=== PATIENT | female | born 1995 | race Caucasian/White ===

== ENCOUNTER 2018-05-24 11:53 | Emergency (ER) | payer BC ==
--- NOTE | 2018-05-24 13:04 | ED ---
General Adult HPI - General Chief complaint: Vaginal Bleeding Stated complaint: Poss miscarriage Time Seen by Provider: 05/24/18 12:18 Source: patient, RN notes reviewed Mode of arrival: ambulatory Limitations: no limitations - History of Present Illness Initial comments: 22-year-old female approximately 4-5 weeks presents to the emergency department for a chief complaint of possible miscarriage. Patient states she started to have vaginal bleeding and cramping last night. Patient states the bleeding is increasing. She denies passing tissue. Patient is concerned she is having a miscarriage. Patient states she has had miscarriages before. She states she is trying to get . Patient states she is established with an [facility] in [place]. She states she is only here because she was visiting her parents. Patient has no other complaints at this time including shortness of breath, chest pain, abdominal pain, nausea or vomiting, headache, or visual changes. - Related Data Previous Rx's Medication Instructions Recorded Cephalexin [Keflex] 500 mg PO Q6H 10 Days cap 05/24/18 Allergies Allergy/AdvReac Type Severity Reaction Status Date / Time No Known Allergies Allergy Verified 05/24/18 13:03 Review of Systems ROS Statement: Those systems with pertinent positive or pertinent negative responses have been documented in the HPI. ROS Other: All systems not noted in ROS Statement are negative. Past Medical History Past Medical History: No Reported History History of Any Multi-Drug Resistant Organisms: None Reported Past Surgical History: No Surgical Hx Reported Past Psychological History: Anxiety, Depression, PTSD Smoking Status: Current every day smoker Past Alcohol Use History: Occasional Past Drug Use History: Marijuana General Exam Limitations: no limitations General appearance: alert, in no apparent distress Head exam: Present: atraumatic, normocephalic, normal inspection Eye exam: Present: normal appearance, PERRL, EOMI. Absent: scleral icterus, conjunctival injection, periorbital swelling ENT exam: Present: normal exam, mucous membranes moist Neck exam: Present: normal inspection, full ROM. Absent: tenderness, meningismus, lymphadenopathy Respiratory exam: Present: normal lung sounds bilaterally. Absent: respiratory distress, wheezes, rales, rhonchi, stridor Cardiovascular Exam: Present: regular rate, normal rhythm, normal heart sounds. Absent: systolic murmur, diastolic murmur, rubs, gallop, clicks GI/Abdominal exam: Present: soft, normal bowel sounds. Absent: distended, tenderness, guarding, rebound, rigid External exam: Present: normal external exam. Absent: erythema, swelling, lesions, lacerations, ecchymosis Speculum exam: Present: normal speculum exam, vaginal bleeding. Absent: erythema, vaginal discharge, cervical discharge, foreign body By manual exam: Present: normal by manual exam. Absent: cervical motion tenderness, adnexal tenderness, adnexal mass, uterine enlargement, uterine tenderness Neurological exam: Present: alert, oriented X3, CN II-XII intact Psychiatric exam: Present: normal affect, normal mood Skin exam: Present: warm, dry, intact, normal color. Absent: rash Course Vital Signs 05/24/18 05/24/18 12:07 16:05 Temperature 98.9 F Pulse Rate 102 H 53 L Respiratory 18 20 Rate Blood Pressure 115/78 100/54 O2 Sat by Pulse 99 100 Oximetry Medical Decision Making - Medical Decision Making 22-year-old female presents with a 4-5 weeks presents for a possible miscarriage. Patient was found to have a negative qualitative and quantitative hCG. Patient may have had a miscarriage as she is having vaginal bleeding. Ultrasound shows no acute pelvic abnormality. CBC and CMP are unremarkable. Trichomonas negative. Gonorrhea and chlamydia pending. Urine does show greater than 182 white cells. She is afebrile. Patient given Rocephin. Patient will take Keflex for urinary tract infection. She will follow up with primary care and [facility] in 1-2 days and return if she has any worsening symptoms. Patient does have an established [facility] out of town. Blood is likely from vaginal bleeding. All questions answered. - Lab Data Result diagrams: 05/24/18 13:25 Lab Results 05/24/18 05/24/18 05/24/18 Range/Units 13:15 13:25 13:25 WBC 5.8 (4.0-11.0) k/uL RBC 4.46 (3.80-5.40) m/uL Hgb 13.5 (11.4-16.0) gm/dL Hct 42.1 (34.0-46.0) % MCV 94.5 (80.0-100.0) fL MCH 30.3 (25.0-35.0) pg MCHC 32.0 (31.0-37.0) g/dL RDW 14.3 (11.5-15.5) % Plt Count 287 (150-450) k/uL Neutrophils % 61 % Lymphocytes % 31 % Monocytes % 5 % Eosinophils % 1 % Basophils % 0 % Neutrophils # 3.5 (1.3-7.7) k/uL Lymphocytes # 1.8 (1.0-4.8) k/uL Monocytes # 0.3 (0-1.0) k/uL Eosinophils # 0.1 (0-0.7) k/uL Basophils # 0.0 (0-0.2) k/uL HCG, Quant mIU/mL Urine Color Urine Appearance (Clear) Urine pH (5.0-8.0) Ur Specific [place] (1.001-1.035) Urine Protein (Negative) Urine Glucose (UA) (Negative) Urine Ketones (Negative) Urine Blood (Negative) Urine Nitrite (Negative) Urine Bilirubin (Negative) Urine Urobilinogen (<2.0) mg/dL Ur Leukocyte Esterase (Negative) Urine RBC (0-5) /hpf Urine WBC (0-5) /hpf Ur Squamous Epith Cells (0-4) /hpf Urine Mucus (None) /hpf Urine HCG, Qual (Not Detectd) Trichomonas Ag (Rapid) Negative (Negative) Blood Type A Positive Blood Type Recheck [facility] ONLY 05/24/18 05/24/18 05/24/18 Range/Units 13:25 13:25 13:25 WBC (4.0-11.0) k/uL RBC (3.80-5.40) m/uL Hgb (11.4-16.0) gm/dL Hct (34.0-46.0) % MCV (80.0-100.0) fL MCH (25.0-35.0) pg MCHC (31.0-37.0) g/dL RDW (11.5-15.5) % Plt Count (150-450) k/uL Neutrophils % % Lymphocytes % % Monocytes % % Eosinophils % % Basophils % % Neutrophils # (1.3-7.7) k/uL Lymphocytes # (1.0-4.8) k/uL Monocytes # (0-1.0) k/uL Eosinophils # (0-0.7) k/uL Basophils # (0-0.2) k/uL HCG, Quant 3.9 mIU/mL Urine Color Yellow Urine Appearance Turbid H (Clear) Urine pH 6.5 (5.0-8.0) Ur Specific [place] 1.012 (1.001-1.035) Urine Protein Trace H (Negative) Urine Glucose (UA) Negative (Negative) Urine Ketones Negative (Negative) Urine Blood Moderate H (Negative) Urine Nitrite Negative (Negative) Urine Bilirubin Negative (Negative) Urine Urobilinogen <2.0 (<2.0) mg/dL Ur Leukocyte Esterase Large H (Negative) Urine RBC 8 H (0-5) /hpf Urine WBC >182 H (0-5) /hpf Ur Squamous Epith Cells 1 (0-4) /hpf Urine Mucus Rare H (None) /hpf Urine HCG, Qual Not Detected (Not Detectd) Trichomonas Ag (Rapid) (Negative) Blood Type Blood Type Recheck Disposition Clinical Impression: Urinary tract infection, Miscarriage Disposition: HOME SELF-CARE Condition: Good Instructions (If sedation given, give patient instructions): Urinary Tract Infection in Women (ED) Additional Instructions: Please take Keflex as directed. Please follow-up with primary care and [facility] in 1-2 days. Return here to the emergency department if you have any worsening symptoms. Prescriptions: Cephalexin [Keflex] 500 mg PO Q6H 10 Days cap Is patient prescribed a controlled substance at d/c from ED?: No Referrals: Elizabeth Sandhu MD [REFERRING] - 1-2 days Time of Disposition: 16:42
[2018-05-24] MEDS ORDERED: SODIUM CHLORIDE 0.9% 1,000 ML IV ONE (13:11)
[2018-05-24 13:53] LABS: Basophils % (A) 0 %; Eosinophils # (A) 0.1 k/uL (0-0.7); Eosinophils % (A) 1 %; HCT 42.1 % (34.0-46.0); HGB 13.5 gm/dL (11.4-16.0); Lymphocytes # (A) 1.8 k/uL (1.0-4.8); Lymphocytes % (A) 31 %; MCH 30.3 pg (25.0-35.0); MCV 94.5 fL (80.0-100.0); Mean Platelet Volume 6.7; Monocytes # (A) 0.3 k/uL (0-1.0); Monocytes % (A) 5 %; Neutrophils # (A) 3.5 k/uL (1.3-7.7); Neutrophils % (A) 61 %; Platelet Count 287 k/uL (150-450); RBC 4.46 m/uL (3.80-5.40); RDW 14.3 % (11.5-15.5); WBC 5.8 k/uL (4.0-11.0)
[2018-05-24 14:01] LABS: Appearance,Urine Turbid (Clear); Bilirubin,Urine Negative (Negative); Blood,Urine Moderate (Negative); Color,Urine Yellow; Glucose,Urine (UA) Negative (Negative); Ketones,Urine Negative (Negative); Leukocyte Esterase,Urine Large (Negative); Mucus,Urine Rare /hpf; Nitrite,Urine Negative (Negative); PH, Urine 6.5 (5.0-8.0); Protein,Urine Trace (Negative); RBC,Urine 8 /hpf (0-5); Specific Gravity,Urine 1.012 (1.001-1.035); Squamous Epithelial Cell,Urine 1 /hpf (0-4); Urobilinogen,Urine <2.0 mg/dL (<2.0); WBC,Urine >182 /hpf (0-5)
[2018-05-24] MEDS ORDERED: SODIUM CHLORIDE 0.9% 1,000 ML IV STA (15:40)
--- NOTE | 2018-05-24 16:19 | US ---
EXAMINATION TYPE: US transvaginal DATE OF EXAM: 05/24/2018 COMPARISON: NONE CLINICAL HISTORY: Pain. TECHNIQUE: . Transvaginal sonographic images of the pelvis were acquired. Date of LMP: Unsure EXAM MEASUREMENTS: Uterus: 6.6 x 2.8 x 4.1 cm Endometrial Stripe: 0.2 cm Right Ovary: 2.4 x 1.7 x 1.9 cm Left Ovary: 2.3 x 0.9 x 1.6 cm 1. Uterus: Anteverted wnl 2. Endometrium: wnl 3. Right Ovary: wnl 4. Left Ovary: wnl Spectral, color and waveform doppler imaging shows good arterial and venous flow within the ovaries ; there is no evidence for ovarian torsion. 5. Bilateral Adnexa: wnl 6. Posterior cul-de-sac: wnl IMPRESSION: 1. No acute pelvic ultrasound abnormality
[2018-05-24 16:47] LABS: ALT 24 U/L (9-52); AST 16 U/L (14-36); Albumin 4.5 g/dL (3.5-5.0); Alkaline Phosphatase 76 U/L (38-126); Anion Gap 11 mmol/L; Blood Urea Nitrogen 9 mg/dL (7-17); Calcium 9.7 mg/dL (8.4-10.2); Carbon Dioxide 23 mmol/L (22-30); Chloride 107 mmol/L (98-107); Glucose 87 mg/dL (74-99); Potassium 4.3 mmol/L (3.5-5.1); Sodium 141 mmol/L (137-145); Total Bilirubin 0.7 mg/dL (0.2-1.3); Total Protein 7.8 g/dL (6.3-8.2)
[2018-05-24 17:23] VITALS: BP 112/73; PULSE 57; RESP 16; TEMP 98.3
[2018-05-26 14:46] LABS: C. trachomatis,PCR Negative (Neg,Equiv); Chlamydia trachomatis Source Urine
[2018-05-26 16:01] LABS: N. gonorrhoeae,PCR Negative (Neg,Equiv); Neisseria Source Urine
== END 2018-05-24 17:28 | disposition home or self-care (01) ==
LOC: EC 11:53
DX: O03.88 Urinary tract infection following complete or unspecified spontaneous abortion (principal); O99.331 Smoking (tobacco) complicating pregnancy, first trimester; F17.200 Nicotine dependence, unspecified, uncomplicated; Z3A.01 Less than 8 weeks gestation of pregnancy
CPT/HCPCS: 36415; 86900; 86901; 80053; 85025; 81001; 81025; 84702; 87040; 87808; 87491; 87591; 93975; 76830; 99284; 96365; 96361 ×2; J0696

== ENCOUNTER 2018-09-28 09:51 | Emergency (ER) | payer BC ==
[2018-09-28 10:11] VITALS: RESP 18
[2018-09-28] MEDS ORDERED: SODIUM CHLORIDE 0.9% 1,000 ML IV STA (10:28)
[2018-09-28 11:04] LABS: Anisocytosis Slight; Basophils % (A) 1 %; Eosinophils # (A) 0.1 k/uL (0-0.7); Eosinophils % (A) 1 %; HGB 12.5 gm/dL (11.4-16.0); Hypochromasia Slight; Lymphocytes # (A) 1.2 k/uL (1.0-4.8); Lymphocytes % (A) 20 %; MCH 26.5 pg (25.0-35.0); MCHC 31.3 g/dL (31.0-37.0); MCV 84.6 fL (80.0-100.0); Mean Platelet Volume 6.8; Monocytes # (A) 0.2 k/uL (0-1.0); Monocytes % (A) 3 %; Neutrophils # (A) 4.7 k/uL (1.3-7.7); Neutrophils % (A) 75 %; Platelet Count 329 k/uL (150-450); RBC 4.73 m/uL (3.80-5.40); RDW 16.9 % (11.5-15.5); WBC 6.2 k/uL (3.8-10.6)
[2018-09-28] MEDS ORDERED: FAMOTIDINE 20 MG/2 ML VIAL IV STA (11:05)
[2018-09-28] MEDS ORDERED: KETOROLAC 30 MG/ML 1 ML VIAL IVP STA (11:05)
--- NOTE | 2018-09-28 11:13 | ED ---
General Adult HPI - General Chief complaint: Abdominal Pain Stated complaint: ETOH withdrawals, post surgical pain Time Seen by Provider: 09/28/18 10:14 Source: patient, family, RN notes reviewed Mode of arrival: wheelchair Limitations: no limitations - History of Present Illness Initial comments: 23-year-old female presents to the emergency department for left upper quadrant abdominal pain. Patient states that she has a history of gastric bypass surgery in 2016 as well as surgery for perforated ulcer about 4 months ago at [facility]. Patient is a chronic alcoholic and drinks 20 beers per day. Last drink 8 AM yesterday morning. Patient still states she is withdrawing from Xanax with her last dose being 4 days ago. Today patient presents for her upper abdominal pain. States it has been ongoing for 2 hours. States it is consistent with previous pain from perforated ulcer. Denies nausea vomiting diarrhea. Patient has no other complaints at this time including shortness of breath, chest pain, nausea or vomiting, headache, or visual changes. - Related Data Home Medications Medication Instructions Recorded Confirmed ALPRAZolam [Xanax] 2 mg PO BID 09/28/18 09/28/18 Previous Rx's Medication Instructions Recorded Pantoprazole [Protonix] 40 mg PO DAILY #20 tablet. 09/28/18 Allergies Allergy/AdvReac Type Severity Reaction Status Date / Time No Known Allergies Allergy Verified 09/28/18 10:20 Review of Systems ROS Statement: Those systems with pertinent positive or pertinent negative responses have been documented in the HPI. ROS Other: All systems not noted in ROS Statement are negative. Past Medical History Past Medical History: No Reported History Additional Past Medical History / Comment(s): gastric bypass 2015, perforated ulcer in may, sepsis History of Any Multi-Drug Resistant Organisms: ESBL Past Surgical History: No Surgical Hx Reported Additional Past Surgical History / Comment(s): feeding tube (removed in july 2018) Past Psychological History: Anxiety, Depression, PTSD Smoking Status: Current every day smoker Past Alcohol Use History: Abuse, Daily, Heavy Past Drug Use History: Marijuana, Prescription Drug Abuse General Exam Limitations: no limitations General appearance: alert, in no apparent distress Head exam: Present: atraumatic, normocephalic, normal inspection Eye exam: Present: normal appearance, PERRL, EOMI. Absent: scleral icterus, conjunctival injection, periorbital swelling ENT exam: Present: normal exam, mucous membranes moist Neck exam: Present: normal inspection, full ROM. Absent: tenderness, menin gismus, lymphadenopathy Respiratory exam: Present: normal lung sounds bilaterally. Absent: respiratory distress, wheezes, rales, rhonchi, stridor Cardiovascular Exam: Present: regular rate, normal rhythm, normal heart sounds. Absent: systolic murmur, diastolic murmur, rubs, gallop, clicks GI/Abdominal exam: Present: soft, tenderness (tenderness to the epigastric and LUQ areas), normal bowel sounds. Absent: distended, guarding, rebound, rigid Neurological exam: Present: alert, oriented X3, CN II-XII intact Psychiatric exam: Present: normal affect, normal mood Course Vital Signs 09/28/18 09/28/18 10:04 13:27 Temperature 97.9 F Pulse Rate 107 H 95 Respiratory 18 18 Rate Blood Pressure 127/83 120/76 O2 Sat by Pulse 97 99 Oximetry Medical Decision Making - Medical Decision Making 23-year-old female presents for left upper quadrant pain. Started this morning. Patient is a chronic alcoholic. Has a history of ulcers and has not been taking her Protonix. Exam patient does have some left upper quadrant tenderness. Vitals are stable. Patient was given Ativan as she is withdrawing from alcohol as well. No history of seizures. CBC and CMP are unremarkable. CT shows postsurgical change, no definite acute process. No free air. Patient may have developed ulcer however no concern for perforation at this time. She given Pepcid and pain medication, feeling much better. Patient has had addiction with Xanax in the past she would not be given any Ativan for home. Patient will need to follow up with primary care for that. She will follow up with GI as well. Mother at bedside to take patient home. - Lab Data Result diagrams: 09/28/18 10:33 09/28/18 10:33 Lab Results 09/28/18 09/28/18 09/28/18 Range/Units 10:33 10:33 10:43 WBC 6.2 (3.8-10.6) k/uL RBC 4.73 (3.80-5.40) m/uL Hgb 12.5 (11.4-16.0) gm/dL Hct 40.0 (34.0-46.0) % MCV 84.6 (80.0-100.0) fL MCH 26.5 (25.0-35.0) pg MCHC 31.3 (31.0-37.0) g/dL RDW 16.9 H (11.5-15.5) % Plt Count 329 (150-450) k/uL Neutrophils % 75 % Lymphocytes % 20 % Monocytes % 3 % Eosinophils % 1 % Basophils % 1 % Neutrophils # 4.7 (1.3-7.7) k/uL Lymphocytes # 1.2 (1.0-4.8) k/uL Monocytes # 0.2 (0-1.0) k/uL Eosinophils # 0.1 (0-0.7) k/uL Basophils # 0.0 (0-0.2) k/uL Hypochromasia Slight Anisocytosis Slight Sodium 139 (137-145) mmol/L Potassium 4.1 (3.5-5.1) mmol/L Chloride 101 (98-107) mmol/L Carbon Dioxide 20 L (22-30) mmol/L Anion Gap 18 mmol/L BUN 12 (7-17) mg/dL Creatinine 0.68 (0.52-1.04) mg/dL Est GFR (CKD-EPI)AfAm >90 (>60 ml/min/1.73 sqM) Est GFR (CKD-EPI)NonAf >90 (>60 ml/min/1.73 sqM) Glucose 85 (74-99) mg/dL Calcium 9.4 (8.4-10.2) mg/dL Magnesium 1.6 (1.6-2.3) mg/dL Total Bilirubin 0.3 (0.2-1.3) mg/dL AST 34 (14-36) U/L ALT 24 (9-52) U/L Alkaline Phosphatase 96 (38-126) U/L Total Protein 8.4 H (6.3-8.2) g/dL Albumin 4.9 (3.5-5.0) g/dL Amylase 62 (30-110) U/L Lipase 222 (23-300) U/L Urine Color Urine Appearance (Clear) Urine pH (5.0-8.0) Ur Specific [place] (1.001-1.035) Urine Protein (Negative) Urine Glucose (UA) (Negative) Urine Ketones (Negative) Urine Blood (Negative) Urine Nitrite (Negative) Urine Bilirubin (Negative) Urine Urobilinogen (<2.0) mg/dL Ur Leukocyte Esterase (Negative) Urine RBC (0-5) /hpf Urine WBC (0-5) /hpf Ur Squamous Epith Cells (0-4) /hpf Hyaline Casts (0-2) /lpf Urine Mucus (None) /hpf Urine HCG, Qual Not Detected (Not Detectd) 09/28/18 Range/Units 10:43 WBC (3.8-10.6) k/uL RBC (3.80-5.40) m/uL Hgb (11.4-16.0) gm/dL Hct (34.0-46.0) % MCV (80.0-100.0) fL MCH (25.0-35.0) pg MCHC (31.0-37.0) g/dL RDW (11.5-15.5) % Plt Count (150-450) k/uL Neutrophils % % Lymphocytes % % Monocytes % % Eosinophils % % Basophils % % Neutrophils # (1.3-7.7) k/uL Lymphocytes # (1.0-4.8) k/uL Monocytes # (0-1.0) k/uL Eosinophils # (0-0.7) k/uL Basophils # (0-0.2) k/uL Hypochromasia Anisocytosis Sodium (137-145) mmol/L Potassium (3.5-5.1) mmol/L Chloride (98-107) mmol/L Carbon Dioxide (22-30) mmol/L Anion Gap mmol/L BUN (7-17) mg/dL Creatinine (0.52-1.04) mg/dL Est GFR (CKD-EPI)AfAm (>60 ml/min/1.73 sqM) Est GFR (CKD-EPI)NonAf (>60 ml/min/1.73 sqM) Glucose (74-99) mg/dL Calcium (8.4-10.2) mg/dL Magnesium (1.6-2.3) mg/dL Total Bilirubin (0.2-1.3) mg/dL AST (14-36) U/L ALT (9-52) U/L Alkaline Phosphatase (38-126) U/L Total Protein (6.3-8.2) g/dL Albumin (3.5-5.0) g/dL Amylase (30-110) U/L Lipase (23-300) U/L Urine Color Yellow Urine Appearance Clear (Clear) Urine pH 5.5 (5.0-8.0) Ur Specific [place] 1.024 (1.001-1.035) Urine Protein 2+ H (Negative) Urine Glucose (UA) Negative (Negative) Urine Ketones 1+ H (Negative) Urine Blood Negative (Negative) Urine Nitrite Negative (Negative) Urine Bilirubin Negative (Negative) Urine Urobilinogen <2.0 (<2.0) mg/dL Ur Leukocyte Esterase Negative (Negative) Urine RBC 1 (0-5) /hpf Urine WBC 4 (0-5) /hpf Ur Squamous Epith Cells 1 (0-4) /hpf Hyaline Casts 4 H (0-2) /lpf Urine Mucus Few H (None) /hpf Urine HCG, Qual (Not Detectd) Disposition Clinical Impression: Abdominal pain Disposition: HOME SELF-CARE Condition: Good Instructions (If sedation given, give patient instructions): Abdominal Pain (ED) Additional Instructions: Please take Protonix as directed. Follow up with GI in 1-2 days. Return to the nearest emergency department if you have any worsening symptoms. Prescriptions: Pantoprazole [Protonix] 40 mg PO DAILY #20 tablet.dr Is patient prescribed a controlled substance at d/c from ED?: No Referrals: Nonstaff,Physician [Primary Care Provider] - 1-2 days Ellis Donovan MD [STAFF PHYSICIAN] - 1-2 days Time of Disposition: 14:41
[2018-09-28 11:14] LABS: Appearance,Urine Clear (Clear); Bilirubin,Urine Negative (Negative); Blood,Urine Negative (Negative); Color,Urine Yellow; Glucose,Urine (UA) Negative (Negative); Hyaline Casts,Urine 4 /lpf (0-2); Ketones,Urine 1+ (Negative); Leukocyte Esterase,Urine Negative (Negative); Mucus,Urine Few /hpf; Nitrite,Urine Negative (Negative); PH, Urine 5.5 (5.0-8.0); Protein,Urine 2+ (Negative); RBC,Urine 1 /hpf (0-5); Specific Gravity,Urine 1.024 (1.001-1.035); Squamous Epithelial Cell,Urine 1 /hpf (0-4); Urobilinogen,Urine <2.0 mg/dL (<2.0); WBC,Urine 4 /hpf (0-5)
[2018-09-28] MEDS ORDERED: LORazepam 2 MG/ML INJ IV STA ×2 (11:16→13:06)
[2018-09-28 11:22] LABS: ALT 24 U/L (9-52); AST 34 U/L (14-36); African American GFR (CKD) >90 (>60 ml/min/1.73 sqM); Albumin 4.9 g/dL (3.5-5.0); Alkaline Phosphatase 96 U/L (38-126); Amylase 62 U/L (30-110); Anion Gap 18 mmol/L; Blood Urea Nitrogen 12 mg/dL (7-17); Calcium 9.4 mg/dL (8.4-10.2); Carbon Dioxide 20 mmol/L (22-30); Chloride 101 mmol/L (98-107); Glucose 85 mg/dL (74-99); Lipase 222 U/L (23-300); Magnesium 1.6 mg/dL (1.6-2.3); Potassium 4.1 mmol/L (3.5-5.1); Sodium 139 mmol/L (137-145); Total Bilirubin 0.3 mg/dL (0.2-1.3); Total Protein 8.4 g/dL (6.3-8.2)
--- NOTE | 2018-09-28 12:56 | CT ---
EXAMINATION TYPE: CT abdomen pelvis w con DATE OF EXAM: 09/28/2018 COMPARISON: None HISTORY: Abdominal pain, one hour; History of prforated ulcer repair CT DLP: 770.3 mGycm Automated exposure control for dose reduction was used. CONTRAST: CT scan of the abdomen pelvis is performed with IV Contrast, patient injected with 100 ml mL of Isovu e 300. FINDINGS- LUNG BASES- No significant abnormality is appreciated. LIVER/GB- No gross abnormality is appreciated. PANCREAS- No gross abnormality is seen. SPLEEN- No gross abnormality is seen. ADRENALS- No gross abnormality is seen. KIDNEYS/BLADDER- no hydronephrosis, nephrolithiasis or renal mass BOWEL-postsurgical change involving the stomach. Bowel gas pattern nonspecific. Appendix not seen wit h certainty. Additional surgery involving the small bowel suspected within the abdomen.. LYMPH NODES- No greater than 1cm abdominal or pelvic lymph nodes areappreciated. OSSEOUS STRUCTURES- No significant abnormality is seen. OTHER- no free fluid or free air. IMPRESSION- 1. Postsurgical change with no definite acute process. Correlate clinically.
[2018-09-28] MEDS ORDERED: MORPHINE SULFATE 4 MG/ML SYRINGE IVP STA ×2 (13:06→14:44)
[2018-09-28] MEDS ORDERED: MAG HYDROX/AL HYDROX/SIMETH 30 ML, HYOSCYAMINE ELIXIR 10 ML, CIMETIDINE HCL 300 MG, LID... PO STA ×4 (13:06)
[2018-09-28 14:53] VITALS: BP 124/83; PULSE 75; TEMP 97
== END 2018-09-28 15:05 | disposition home or self-care (01) ==
LOC: EC 09:51
DX: R10.12 Left upper quadrant pain (principal); G89.18 Other acute postprocedural pain; F10.239 Alcohol dependence with withdrawal, unspecified; F17.200 Nicotine dependence, unspecified, uncomplicated; F41.9 Anxiety disorder, unspecified; F43.10 Post-traumatic stress disorder, unspecified; Z98.84 Bariatric surgery status; Z79.899 Other long term (current) drug therapy
CPT/HCPCS: 36415; 80053; 82150; 83690; 83735; 85025; 81001; 81025; 74177; 99284; 96374; 96375 ×3; 96376 ×2; 96361; J2060; J2270; J1885; Q9967

== ENCOUNTER 2019-06-13 21:49 | Emergency (ER) | payer BC ==
--- NOTE | 2019-06-13 22:17 | ED ---
General Adult HPI - General Stated complaint: mental health Time Seen by Provider: 06/13/19 21:55 - History of Present Illness Initial comments: Dictation was produced using [employer] dictation software. please excuse any grammatical, word or spelling errors. Chief Complaint: 23-year-old female brought in by EMS for History of Present Illness: 23-year-old female brought in by EMS. Patient is allegedly 19 weeks . When asked why she is here, patient reports she called the final inspector because she was drunk. Patient has a petition filled out for her. Mother fill out a petition was concerned that patient is abusing drugs, alcohol and medications. Patient states she is really anxious and wants her anxiety medications and wants to leave. She was belligerent and threatening to escape to EMS. She was given 2 of IM Versed The ROS documented in this emergency department record has been reviewed and confirmed by me. Those systems with pertinent positive or negative responses have been documented in the HPI. All other systems are other negative and/or noncontributory. PHYSICAL EXAM: General Impression: Alert and oriented x3, not in acute distress, uncooperative HEENT: Normocephalic atraumatic, extra-ocular movements intact, pupils equal and reactive to light bilaterally, mucous membranes moist. Cardiovascular: Heart regular rate and rhythm, S1&S2 audible, no murmurs, rubs or gallops Chest: Lungs clear to auscultation bilaterally, no rhonchi, no wheeze, no rales Abdomen: Bowel sounds present, abdomen soft, non-tender, non-distended, no organomegaly Musculoskeletal: Pulses present and equal in all extremities, no peripheral edema Motor: no focal deficits noted Neurological: CN II-XII grossly intact, no focal motor or sensory deficits noted Skin: Intact with no visualized rashes Psych: Agitated ED course: 23-year-old female presents with concerns of drug abuse. She is allegedly 19 weeks . Patient's breath alcohol test is 0.187. heart tones 144. Patient became extremely combative at bedside. She required restraints. Patient was given 5 mg of IM Versed. Laboratory evaluation obtained. CBC unremarkable. Metabolic panel shows mild anion gap acidosis. Anion gap of 13, bicarb of 17. Urine hCG shows positive qualitative result. Patient has alcohol level of 207. Anion gap acidosis likely secondary to alcoholic ketoacidosis. Patient ordered for intravenous fluids. Pending clinical sobriety for EPS evaluation. heart rate is 144. Patient warned of the consequences of alcohol ingestion and drug ingestion during . She still continues to yell at me. Patient reports that she takes Ativan even throughout her which is prescribed by her psychiatrist. She reports that her LAN/WAN ENGINEER or a note to her psychiatrist to continue taking Xanax for her anxiety. Patient is very argumentative and wants nothing more than just a Xanax pill. Discussed with patient that Xanax is not safe in . She states that she knows and she wants it anyway since this one of her daily medications. She counseled of the harms of drinking alcohol and consuming benzos regularly while . She states she doesn't care. Patient was observed in emergency department until clinical sobriety. Patient was evaluated by EPS and recommended discharge. Safety plan was agreed upon among patient with EPS. Patient reevaluated at bedside and found to be stable medical condition. Patient will be discharged. EKG interpretation: Ventricular rate 74, normal sinus rhythm,. Interval 116, QRS 84, QTC 479. No HI prolongation, no QTC prolongation, no ST or T-wave changes noted. . Overall, this EKG is unremarkable - Related Data Home Medications Medication Instructions Recorded Confirmed ALPRAZolam [Xanax] 2 mg PO BID 09/28/18 09/28/18 Previous Rx's Medication Instructions Recorded Pantoprazole [Protonix] 40 mg PO DAILY #20 tablet. 09/28/18 Allergies Allergy/AdvReac Type Severity Reaction Status Date / Time No Known Allergies Allergy Verified 06/13/19 22:28 Review of Systems ROS Statement: Those systems with pertinent positive or pertinent negative responses have been documented in the HPI. ROS Other: All systems not noted in ROS Statement are negative. Past Medical History Past Medical History: No Reported History Additional Past Medical History / Comment(s): gastric bypass 2016, perforated ulcer in may, sepsis History of Any Multi-Drug Resistant Organisms: ESBL Past Surgical History: No Surgical Hx Reported Additional Past Surgical History / Comment(s): feeding tube (removed in july 2018) Past Psychological History: Anxiety, Depression, PTSD Smoking Status: Current every day smoker Past Alcohol Use History: Abuse, Daily, Heavy Past Drug Use History: Marijuana, Prescription Drug Abuse Course Vital Signs 06/13/19 22:26 Temperature 98.3 F Pulse Rate 90 Respiratory 18 Rate Blood Pressure 107/69 O2 Sat by Pulse 100 Oximetry Procedures - Restraint - Face to Face Restraint Occurrence 1 Patient's Immediate Situation: Endangers self safety, Endangers others' safety, Endangers staff safety, Violent behavior Patient's Reaction to the Intervention: Uncooperative, Angry, Belligerent Patient's Medical & Behavioral Condition: Awake, Agitated Need to Continue or Terminate Restraint or Seclusion: Continue Face to Face Eval of Restraint Date: 06/13/19 Face to Face Eval of Restraint Time: 22:47 Medical Decision Making - Lab Data Result diagrams: 06/13/19 22:35 06/13/19 22:35 Lab Results 06/13/19 06/13/19 06/13/19 Range/Units 22:05 22:05 22:35 WBC 8.5 (3.8-10.6) k/uL RBC 4.03 (3.80-5.40) m/uL Hgb 12.0 (11.4-16.0) gm/dL Hct 36.9 (34.0-46.0) % MCV 91.6 (80.0-100.0) fL MCH 29.7 (25.0-35.0) pg MCHC 32.5 (31.0-37.0) g/dL RDW 15.2 (11.5-15.5) % Plt Count 250 (150-450) k/uL Neutrophils % 64 % Lymphocytes % 31 % Monocytes % 3 % Eosinophils % 1 % Basophils % 0 % Neutrophils # 5.4 (1.3-7.7) k/uL Lymphocytes # 2.7 (1.0-4.8) k/uL Monocytes # 0.3 (0-1.0) k/uL Eosinophils # 0.1 (0-0.7) k/uL Basophils # 0.0 (0-0.2) k/uL Sodium (137-145) mmol/L Potassium (3.5-5.1) mmol/L Chloride (98-107) mmol/L Carbon Dioxide (22-30) mmol/L Anion Gap mmol/L BUN (7-17) mg/dL Creatinine (0.52-1.04) mg/dL Est GFR (CKD-EPI)AfAm (>60 ml/min/1.73 sqM) Est GFR (CKD-EPI)NonAf (>60 ml/min/1.73 sqM) Glucose (74-99) mg/dL Calcium (8.4-10.2) mg/dL Urine HCG, Qual Detected (Not Detectd) Salicylates mg/dL Urine Opiates Screen Not Detected (NotDetected) Ur Oxycodone Screen Not Detected (NotDetected) Urine Methadone Screen Not Detected (NotDetected) Ur Propoxyphene Screen Not Detected (NotDetected) Acetaminophen ug/mL Ur Barbiturates Screen Not Detected (NotDetected) U Tricyclic Antidepress Not Detected (NotDetected) Ur Phencyclidine Scrn Not Detected (NotDetected) Ur Amphetamines Screen Not Detected (NotDetected) U Methamphetamines Scrn Not Detected (NotDetected) U Benzodiazepines Scrn Detected H (NotDetected) Urine Cocaine Screen Not Detected (NotDetected) U Marijuana (THC) Screen Detected H (NotDetected) Serum Alcohol mg/dL 06/13/19 Range/Units 22:35 WBC (3.8-10.6) k/uL RBC (3.80-5.40) m/uL Hgb (11.4-16.0) gm/dL Hct (34.0-46.0) % MCV (80.0-100.0) fL MCH (25.0-35.0) pg MCHC (31.0-37.0) g/dL RDW (11.5-15.5) % Plt Count (150-450) k/uL Neutrophils % % Lymphocytes % % Monocytes % % Eosinophils % % Basophils % % Neutrophils # (1.3-7.7) k/uL Lymphocytes # (1.0-4.8) k/uL Monocytes # (0-1.0) k/uL Eosinophils # (0-0.7) k/uL Basophils # (0-0.2) k/uL Sodium 142 (137-145) mmol/L Potassium 4.0 (3.5-5.1) mmol/L Chloride 112 H (98-107) mmol/L Carbon Dioxide 17 L (22-30) mmol/L Anion Gap 13 mmol/L BUN 2 L (7-17) mg/dL Creatinine 0.56 (0.52-1.04) mg/dL Est GFR (CKD-EPI)AfAm >90 (>60 ml/min/1.73 sqM) Est GFR (CKD-EPI)NonAf >90 (>60 ml/min/1.73 sqM) Glucose 85 (74-99) mg/dL Calcium 8.8 (8.4-10.2) mg/dL Urine HCG, Qual (Not Detectd) Salicylates <1.0 mg/dL Urine Opiates Screen (NotDetected) Ur Oxycodone Screen (NotDetected) Urine Methadone Screen (NotDetected) Ur Propoxyphene Screen (NotDetected) Acetaminophen <10.0 ug/mL Ur Barbiturates Screen (NotDetected) U Tricyclic Antidepress (NotDetected) Ur Phencyclidine Scrn (NotDetected) Ur Amphetamines Screen (NotDetected) U Methamphetamines Scrn (NotDetected) U Benzodiazepines Scrn (NotDetected) Urine Cocaine Screen (NotDetected) U Marijuana (THC) Screen (NotDetected) Serum Alcohol 207 H* mg/dL Disposition Clinical Impression: Alcohol abuse affecting Disposition: HOME SELF-CARE Condition: Fair Instructions (If sedation given, give patient instructions): Alcohol Intoxication (ED) Is patient prescribed a controlled substance at d/c from ED?: No Referrals: None,Stated [Primary Care Provider] - 1-2 days Time of Disposition: 06:16
[2019-06-13] MEDS ORDERED: MIDAZOLAM 1 MG/ML 5 ML VIAL IV STA (22:18)
[2019-06-13 22:29] VITALS: RESP 18
[2019-06-13 22:41] LABS: Amphetamine Screen,Urine Not Detected (NotDetected); Barbiturate Screen,Urine Not Detected (NotDetected); Benzodiazepines Screen,Urine Detected (NotDetected); Cocaine Screen,Urine Not Detected (NotDetected); Methadone Screen, Urine Not Detected (NotDetected); Opiate Screen,Urine Not Detected (NotDetected); Oxycodone Screen, Urine Not Detected (NotDetected); Phencyclidine Screen,Urine Not Detected (NotDetected); Tricyclic Antidepressant,Urine Not Detected (NotDetected); Urn Cannabinoid Scrn Detected (NotDetected)
[2019-06-13 22:44] LABS: Basophils % (A) 0 %; Eosinophils # (A) 0.1 k/uL (0-0.7); Eosinophils % (A) 1 %; HCT 36.9 % (34.0-46.0); Lymphocytes # (A) 2.7 k/uL (1.0-4.8); Lymphocytes % (A) 31 %; MCH 29.7 pg (25.0-35.0); MCHC 32.5 g/dL (31.0-37.0); MCV 91.6 fL (80.0-100.0); Mean Platelet Volume 7.6; Monocytes # (A) 0.3 k/uL (0-1.0); Monocytes % (A) 3 %; Neutrophils # (A) 5.4 k/uL (1.3-7.7); Neutrophils % (A) 64 %; Platelet Count 250 k/uL (150-450); RBC 4.03 m/uL (3.80-5.40); RDW 15.2 % (11.5-15.5); WBC 8.5 k/uL (3.8-10.6)
[2019-06-13 22:51] LABS: Acetaminophen <10.0 ug/mL; African American GFR (CKD) >90 (>60 ml/min/1.73 sqM); Anion Gap 13 mmol/L; Blood Urea Nitrogen 2 mg/dL (7-17); Calcium 8.8 mg/dL (8.4-10.2); Carbon Dioxide 17 mmol/L (22-30); Chloride 112 mmol/L (98-107); Glucose 85 mg/dL (74-99); Non-African American GFR(CKD) >90 (>60 ml/min/1.73 sqM); Salicylate <1.0 mg/dL; Sodium 142 mmol/L (137-145)
[2019-06-13 23:05] LABS: Alcohol 207 mg/dL
[2019-06-13] MEDS ORDERED: SODIUM CHLORIDE 0.9% 1,000 ML IV STA (23:06)
[2019-06-14] MEDS ORDERED: LORazepam 1 MG TAB PO STA (02:14)
[2019-06-14 06:20] VITALS: BP 108/61; PULSE 77; TEMP 98
== END 2019-06-14 06:32 | disposition home or self-care (01) ==
LOC: EC 21:49
DX: O99.312 Alcohol use complicating pregnancy, second trimester (principal); F10.10 Alcohol abuse, uncomplicated; O99.89 Other specified diseases and conditions complicating pregnancy, childbirth and the puerperium; R45.1 Restlessness and agitation; O99.282 Endocrine, nutritional and metabolic diseases complicating pregnancy, second trimester; E87.2 Acidosis; Z71.41 Alcohol abuse counseling and surveillance of alcoholic; O99.342 Other mental disorders complicating pregnancy, second trimester; F32.9 Major depressive disorder, single episode, unspecified; F41.9 Anxiety disorder, unspecified; O99.332 Smoking (tobacco) complicating pregnancy, second trimester; F17.200 Nicotine dependence, unspecified, uncomplicated; Z79.899 Other long term (current) drug therapy; Y90.7 Blood alcohol level of 200-239 mg/100 ml; Z3A.19 19 weeks gestation of pregnancy
CPT/HCPCS: 82075; 36415; 93005; 80048; 85025; 81025; 80306; 83520; 80329; 80320; 99285; 96374; 96361 ×6; J2250

== ENCOUNTER 2019-06-17 15:53 | Emergency (ER) | payer BC ==
[2019-06-17 16:01] VITALS: TEMP 97.9
--- NOTE | 2019-06-17 16:57 | ED ---
General Adult HPI - General Chief complaint: Recheck/Abnormal Lab/Rx Stated complaint: 20 wks /cramping Time Seen by Provider: 06/17/19 16:06 Source: patient, RN notes reviewed, old records reviewed Mode of arrival: ambulatory Limitations: no limitations - History of Present Illness Initial comments: This Patient is a 23-year-old female, currently 20 weeks . She is a female. She reports that she follows with CAPTAIN/CHECK AIRMAN to [facility] due to having a high risk . Patient states that she's had no vaginal bleeding. She presents today with lower abdominal cramping. She was seen in the emergency department this weekend for alcohol intoxication. Patient reports that she has not felt her baby move since that time and is worried that she caused damage to the fetus. - Related Data Home Medications Medication Instructions Recorded Confirmed ALPRAZolam [Xanax] 2 mg PO BID 09/28/18 09/28/18 Previous Rx's Medication Instructions Recorded Pantoprazole [Protonix] 40 mg PO DAILY #20 tablet. 09/28/18 Allergies Allergy/AdvReac Type Severity Reaction Status Date / Time No Known Allergies Allergy Verified 06/17/19 16:01 Review of Systems ROS Statement: Those systems with pertinent positive or pertinent negative responses have been documented in the HPI. ROS Other: All systems not noted in ROS Statement are negative. Past Medical History Past Medical History: No Reported History Additional Past Medical History / Comment(s): gastric bypass 2015, perforated ulcer in may, sepsis History of Any Multi-Drug Resistant Organisms: ESBL Past Surgical History: No Surgical Hx Reported Additional Past Surgical History / Comment(s): feeding tube (removed in july 2018) Past Psychological History: Anxiety, Depression, PTSD Smoking Status: Current every day smoker Past Alcohol Use History: Abuse, Daily, Heavy Past Drug Use History: Marijuana, Prescription Drug Abuse General Exam - General Exam Comments Initial Comments: Alert and oriented 23-year-old female. No significant distress. Limitations: no limitations General appearance: alert, in no apparent distress Head exam: Present: atraumatic, normocephalic, normal inspection Eye exam: Present: normal appearance, PERRL, EOMI. Absent: scleral icterus, conjunctival injection, periorbital swelling ENT exam: Present: normal exam, mucous membranes moist Neck exam: Present: normal inspection. Absent: tenderness, meningismus, lymphadenopathy Respiratory exam: Present: normal lung sounds bilaterally. Absent: respiratory distress, wheezes, rales, rhonchi, stridor Cardiovascular Exam: Present: regular rate, normal rhythm, normal heart sounds. Absent: systolic murmur, diastolic murmur, rubs, gallop, clicks GI/Abdominal exam: Present: soft, normal bowel sounds. Absent: distended, tenderness, guarding, rebound, rigid Extremities exam: Present: normal inspection, full ROM, normal capillary refill. Absent: tenderness, pedal edema, joint swelling, calf tenderness Back exam: Present: normal inspection, full ROM Neurological exam: Present: alert, oriented X3, CN II-XII intact Psychiatric exam: Present: normal affect, normal mood Skin exam: Present: warm, dry, intact, normal color. Absent: rash Course Vital Signs 06/17/19 06/17/19 15:58 17:28 Temperature 97.9 F 97.9 F Pulse Rate 69 79 Respiratory 18 19 Rate Blood Pressure 107/72 111/68 O2 Sat by Pulse 100 99 Oximetry Medical Decision Making - Medical Decision Making 23 year old female, no distress. 20 weeks and hx of lower cramping. She has heart tones 144 bpm. UA is normal, no bleeding. No vaginal discharged noted. Patient is advised to follow up with OBGYN. - Lab Data Lab Results 06/17/19 06/17/19 Range/Units 17:00 17:00 Urine Color Light Yellow Urine Appearance Clear (Clear) Urine pH 7.0 (5.0-8.0) Ur Specific [place] 1.004 (1.001-1.035) Urine Protein Negative (Negative) Urine Glucose (UA) Negative (Negative) Urine Ketones Negative (Negative) Urine Blood Negative (Negative) Urine Nitrite Negative (Negative) Urine Bilirubin Negative (Negative) Urine Urobilinogen <2.0 (<2.0) mg/dL Ur Leukocyte Esterase Negative (Negative) Trichomonas Ag (Rapid) Negative (Negative) - Radiology Data Radiology results: report reviewed Disposition Clinical Impression: Abdominal cramping affecting Disposition: HOME SELF-CARE Condition: Good Instructions (If sedation given, give patient instructions): Abdominal Pain in (ED) Additional Instructions: Follow-up with your CAPTAIN/CHECK AIRMAN. Return to the ED if any alarming signs or symptoms occur. Take Tylenol for pain. Is patient prescribed a controlled substance at d/c from ED?: No Referrals: Nonstaff,Physician [Primary Care Provider] - 1-2 days Time of Disposition: 17:25
[2019-06-17 17:23] LABS: Appearance,Urine Clear (Clear); Bilirubin,Urine Negative (Negative); Blood,Urine Negative (Negative); Color,Urine Light Yellow; Glucose,Urine (UA) Negative (Negative); Ketones,Urine Negative (Negative); Leukocyte Esterase,Urine Negative (Negative); Nitrite,Urine Negative (Negative); Protein,Urine Negative (Negative); Specific Gravity,Urine 1.004 (1.001-1.035); Urobilinogen,Urine <2.0 mg/dL (<2.0)
[2019-06-17 17:30] VITALS: BP 111/68; PULSE 79; RESP 19
[2019-06-18 14:33] LABS: C. trachomatis,PCR Negative (Neg,Equiv); Chlamydia trachomatis Source Vagina; N. gonorrhoeae,PCR Negative (Neg,Equiv); Neisseria Source Vagina
== END 2019-06-17 17:29 | disposition home or self-care (01) ==
LOC: EC 15:53
DX: O26.892 Other specified pregnancy related conditions, second trimester (principal); O99.342 Other mental disorders complicating pregnancy, second trimester; F41.9 Anxiety disorder, unspecified; F32.9 Major depressive disorder, single episode, unspecified; O99.332 Smoking (tobacco) complicating pregnancy, second trimester; F17.200 Nicotine dependence, unspecified, uncomplicated; Z79.899 Other long term (current) drug therapy; Z98.84 Bariatric surgery status; Z3A.20 20 weeks gestation of pregnancy
CPT/HCPCS: 81003; 87070; 87491; 87591; 87808; 99284

== ENCOUNTER 2019-08-13 11:36 | Outpatient (CLI) | payer BC ==
[2019-08-13] MEDS ORDERED: LACTATED RINGERS 1,000 ML IV SCH ×2 (13:00)
[2019-08-13 13:35] VITALS: BP 121/57; PULSE 82; RESP 18; TEMP 98.2
[2019-08-13 13:35] LABS: Basophils % (A) 0 %; Eosinophils # (A) 0.1 k/uL (0-0.7); Eosinophils % (A) 1 %; HCT 33.1 % (34.0-46.0); HGB 10.7 gm/dL (11.4-16.0); Lymphocytes # (A) 1.8 k/uL (1.0-4.8); Lymphocytes % (A) 23 %; MCH 30.5 pg (25.0-35.0); MCHC 32.3 g/dL (31.0-37.0); MCV 94.6 fL (80.0-100.0); Mean Platelet Volume 7.9; Monocytes # (A) 0.3 k/uL (0-1.0); Monocytes % (A) 3 %; Neutrophils # (A) 5.7 k/uL (1.3-7.7); Neutrophils % (A) 73 %; Platelet Count 211 k/uL (150-450); WBC 7.9 k/uL (3.8-10.6)
[2019-08-13 14:27] LABS: Appearance,Urine Clear (Clear); Bilirubin,Urine Negative (Negative); Blood,Urine Negative (Negative); Color,Urine Yellow; Glucose,Urine (UA) Negative (Negative); Ketones,Urine Negative (Negative); Leukocyte Esterase,Urine Negative (Negative); Nitrite,Urine Negative (Negative); PH, Urine 7.5 (5.0-8.0); Protein,Urine Negative (Negative); Urobilinogen,Urine <2.0 mg/dL (<2.0)
--- NOTE | 2019-08-13 14:34 | US ---
EXAMINATION TYPE: US OB >= 14 wk fetus DATE OF EXAM: 08/13/2019 COMPARISON: None CLINICAL HISTORY: 28 weeks. bleeding hxBleeding and cramps. TECHNIQUE: Transabdominal (TA) GESTATIONAL AGE / DATING Physician Established: (28 weeks/2 days) EDC: 11/03/2019 Dates by LMP: (28 weeks/2 days) EDC: 11/03/2019 Dates by First Scan: No previous this is first scan Dates by Current Scan: (26 weeks/2 days) EDC: 11/17/2019 SURVEY IUP: Single PLACENTA: Posterior PREVIA: No Previa KRISTEN: 13.2 cm Normal CERVICAL LENGTH (transabdominal: norm > 3.0cm): 4.3 cm BIOMETRY PRESENTATION: Breech LIE: Longitudinal BPD: 6.66 cm 26 weeks / 6 days HC: 17.74 cm 29 weeks / 2 days AC: 24.42 cm 28 weeks / 5 days FL: 5.48 cm 29 weeks / 0 days ESTIMATED WEIGHT IN GRAMS: 1109 grams ESTIMATED WEIGHT IN LBS/OZ: 2 lbs. 7 oz. WEIGHT PERCENTAGE BASED ON ESTABLISHED DATES: 18% HC/AC: 8.73 cm Normal FL/AC: 22% Normal HEART RATE: 147 bpm RHYTHM: Normal IMPRESSION: Single viable intrauterine . The estimated weight is within the 18th percentile. No Un usual collections.
[2019-08-13 14:42] LABS: Amphetamine Screen,Urine Not Detected (NotDetected); Barbiturate Screen,Urine Not Detected (NotDetected); Benzodiazepines Screen,Urine Detected (NotDetected); Cocaine Screen,Urine Not Detected (NotDetected); Methadone Screen, Urine Not Detected (NotDetected); Opiate Screen,Urine Not Detected (NotDetected); Oxycodone Screen, Urine Not Detected (NotDetected); Phencyclidine Screen,Urine Not Detected (NotDetected); Tricyclic Antidepressant,Urine Not Detected (NotDetected); Urn Cannabinoid Scrn Detected (NotDetected)
--- NOTE | 2019-09-14 11:48 | P.MSEPDOC ---
Presenting Problems - Arrival Data Date of Arrival on Unit: 08/13/19 Time of Arrival on Unit: 11:55 Mode of Transport: Portable - Complaint OB-Reason for Admission/Chief Complaint: Other Comment: BLEEDING LAST NIGHT AND PASSING SMALL CLOTS. CONTINUES TO BLEED WITH WIPING. LOWER ABD AND GROIN PAINS AND PRESSURE. STATES EVERY 2- TO 30 MINUTES. Medical History - Information : 5 Para: 0 Term: 0 : 0 Abortions: Spontaneous or Elective: 4 Number of Living Children: 0 - Gestational Age Gestational Age by FERNANDEZ (wks/days): 28 Weeks and 2 Days - History Complications: Hx. Substance Abuse, Other Comment: HX OF MARIJUANA USE IN . LAST USED 3 WEEKS AGO. STATES HX OF COCAINE USE- LAST USED 3 YEARS AGO. BARIATRIC SURGERY 2016. STOMACH ULCER SURGERY LAST YEAR, FEEDING TUBE FOR 7 MOS RECENTLY REMOVED Review of Systems - Review of Systems Constitutional: Recent weight loss Breast: No problems ENT: No problems Cardiovascular: No problems Respiratory: No problems Gastrointestinal: No problems Genitourinary: No problems Musculoskeletal: No problems Neurological: No problems Skin: No problems Vital Signs - Temperature Temperature: 98.2 F Temperature Source: Oral - Pulse Right Brachial Pulse Rate: 82 Pulse Assessment Method: Automatic Cuff - Respirations Respiratory Rate: 18 Oxygen Delivery Method: Room Air O2 Sat by Pulse Oximetry: 98 - Blood Pressure Right Arm Blood Pressure: 121/57 Blood Pressure Mean: 78 Blood Pressure Source: Automatic Cuff Medical Screen Scoring (Pre) - Cervical Exam Dilation: 0 cm = 0 Membranes: Intact - Uterine Contractions Frequency: N/A Duration: N/A Intensity: N/A - Maternal Vital Signs Maternal Temperature: N/A Maternal Blood Pressure: N/A Signs of Preeclampsia: N/A Maternal Respirations: N/A - Maternal Trauma Maternal Trauma: N/A - Assessment - Baby A Baseline FHR: 140 Heart Rate - NICHD Category: Category I (Normal) = 0 NST: Reactive - Total Score - Baby A Total Score - Baby A: 0 - Total Score - Baby B Total Score - Baby B: 0 - Total Score - Baby C Total Score - Baby C: 0 - Level of Risk - Baby A Level of Risk - Baby A: Low (0-5) - Level of Risk - Baby B Level of Risk - Baby B: Low (0-5) - Level of Risk - Baby C Level of Risk - Baby C: Low (0-5) Physician Notification (Pre) - Physician Notified Physician Notified Date: 08/13/19 Physician Notified Time: 12:45 Physician/Practitioner Notifed:: YES Spoke With: GHAZALA New Order Received: Yes - Notification Comment Comment: U/S. CBC., UA, UDS, IV LR Disposition - Disposition OB Disposition: Observe Discharge Date: 08/13/19 Discharge Time: 14:49 I agree with the RN Medical Screening Exam: Yes Risk & Benefit of care provided described in d/c instruction: Yes Diagnosis: SPOTTING COMPLICATING , THIRD TRIMESTER
== END 2019-08-13 14:54 | disposition home or self-care (01) ==
LOC: FBPOP 11:36
PROVIDERS: ATTEND Obstetrics & Gynecology Obstetrics
DX: O26.853 Spotting complicating pregnancy, third trimester (principal); Z3A.28 28 weeks gestation of pregnancy
CPT/HCPCS: 59025; 76805; 80306; 81003; 84112; 85025; 96360; 96361; 96367; 99213; 99214

== ENCOUNTER 2019-09-12 05:55 | Outpatient (CLI) | payer BC ==
[2019-09-12 07:07] VITALS: BP 120/67; PULSE 94; RESP 16; TEMP 99
--- NOTE | 2019-09-22 23:05 | P.MSEPDOC ---
Presenting Problems - Arrival Data Date of Arrival on Unit: 09/12/19 Time of Arrival on Unit: 05:55 Mode of Transport: Ambulatory - Complaint OB-Reason for Admission/Chief Complaint: Decreased Movement Medical History - Information : 5 Para: 0 Term: 0 : 0 Abortions: Spontaneous or Elective: 4 Number of Living Children: 0 - Gestational Age Gestational Age by FERNANDEZ (wks/days): 33 Weeks and 2 Days Review of Systems - Review of Systems Constitutional: No problems Breast: No problems ENT: No problems Cardiovascular: No problems Respiratory: No problems Gastrointestinal: No problems Genitourinary: No problems Musculoskeletal: No problems Neurological: No problems Skin: No problems Vital Signs - Temperature Temperature: 99.0 F Temperature Source: Oral - Pulse Right Pulse Rate: 94 Pulse Assessment Method: Automatic Cuff - Respirations Respiratory Rate: 16 Oxygen Delivery Method: Room Air O2 Sat by Pulse Oximetry: 100 - Blood Pressure Right Arm Blood Pressure: 120/67 Blood Pressure Mean: 84 Blood Pressure Source: Automatic Cuff Medical Screen Scoring (Pre) - Cervical Exam Dilation: 0 cm = 0 Membranes: Intact - Uterine Contractions Frequency: N/A Duration: N/A Intensity: N/A - Maternal Vital Signs Maternal Blood Pressure: N/A Signs of Preeclampsia: N/A Maternal Respirations: N/A - Maternal Trauma Maternal Trauma: N/A - Assessment - Baby A Baseline FHR: 130 Heart Rate - NICHD Category: Category I (Normal) = 0 NST: Reactive Position: N/A Station: N/A - Total Score - Baby A Total Score - Baby A: 0 - Total Score - Baby B Total Score - Baby B: 0 - Total Score - Baby C Total Score - Baby C: 0 - Level of Risk - Baby A Level of Risk - Baby A: Low (0-5) - Level of Risk - Baby B Level of Risk - Baby B: Low (0-5) - Level of Risk - Baby C Level of Risk - Baby C: Low (0-5) Physician Notification (Pre) - Physician Notified Physician Notified Date: 09/12/19 Physician Notified Time: 06:45 New Order Received: Yes - Notification Comment Comment: Discharge home Disposition - Disposition OB Disposition: Discharge to home Discharge Date: 09/12/19 Discharge Time: 07:00 I agree with the RN Medical Screening Exam: Yes Risk & Benefit of care provided described in d/c instruction: Yes Diagnosis: DECREASED MOVEMENTS, THIRD TRIMESTER, FETUS 1
== END 2019-09-12 07:00 | disposition home or self-care (01) ==
LOC: FBPOP 05:55
PROVIDERS: ATTEND Obstetrics & Gynecology
DX: O36.8131 Decreased fetal movements, third trimester, fetus 1 (principal); Z3A.33 33 weeks gestation of pregnancy
CPT/HCPCS: 59025; 99213

== ENCOUNTER 2020-12-19 04:30 | Emergency (ER) | payer BC ==
[2020-12-19 04:39] VITALS: TEMP 98.5
[2020-12-19] MEDS ORDERED: AMOXIC-POT CLAV 875-125MG 1 EACH TAB PO STA (04:48)
--- NOTE | 2020-12-19 04:56 | ED ---
General Adult HPI - General Source: patient, EMS Mode of arrival: EMS Limitations: no limitations - History of Present Illness -: week(s) Location: mouth Quality: aching Consistency: constant Improves with: none Worsens with: none Associated Symptoms: other Treatments Prior to Arrival: other <Teo King - Last Filed: 12/19/20 06:26> <SauerAnish - Last Filed: 12/19/20 07:07> - General Chief complaint: Psychiatric Symptoms Stated complaint: Mental Health Time Seen by Provider: 12/19/20 04:36 - History of Present Illness Initial comments: 's patient is a 25-year-old woman who presents with 2 complaints. She states she is having right mandibular tooth pain that is been going on for a few weeks. She had been treated with coarse antibiotics but had not seen a dentist yet. The pain has recurred. No fever or chills. No swelling. No trouble with swallowing. No pain into the neck. She is also having anxiety and restlessness. Patient denies suicidal ideation. She states that her primary care physician has been treating her anxiety but it does not seem to be improving much. (Teo King) - Related Data Home Medications Medication Instructions Recorded Confirmed Zolpidem [Ambien] 10 mg PO HS PRN 08/13/19 12/19/20 Dextroamphetamine/Amphetamine 30 mg PO BID 12/19/20 12/19/20 [Adderall] Ondansetron [Zofran ODT] 4 mg PO Q8HR 12/19/20 12/19/20 Sertraline [Zoloft] 50 mg PO DAILY 12/19/20 12/19/20 buPROPion XL [Wellbutrin XL] 150 mg PO DAILY 12/19/20 12/19/20 busPIRone HCl [Buspar] 15 mg PO BID 12/19/20 12/19/20 clonazePAM [KlonoPIN] 0.5 mg PO DAILY 12/19/20 12/19/20 Previous Rx's Medication Instructions Recorded Pantoprazole [Protonix] 40 mg PO DAILY #20 tablet. 09/28/18 Amoxicillin 500 mg PO Q8H #30 cap 12/19/20 Allergies Allergy/AdvReac Type Severity Reaction Status Date / Time No Known Allergies Allergy Verified 12/19/20 04:38 Review of Systems ROS Other: All systems not noted in ROS Statement are negative. Constitutional: Denies: fever, chills Eyes: Denies: eye pain, vision change ENT: Reports: dental pain. Denies: ear pain, throat pain, congestion Respiratory: Denies: cough, dyspnea Cardiovascular: Denies: chest pain, palpitations Skin: Denies: rash Neurological: Denies: headache Psychiatric: Reports: anxiety. Denies: depression, auditory hallucinations, h omicidal thoughts, suicidal thoughts <Teo King - Last Filed: 12/19/20 06:26> ROS Other: All systems not noted in ROS Statement are negative. <SauerAnish - Last Filed: 12/19/20 07:07> ROS Statement: Those systems with pertinent positive or pertinent negative responses have been documented in the HPI. Past Medical History Past Medical History: GERD/Reflux Additional Past Medical History / Comment(s): gastric bypass 2015, perforated ulcer in may, sepsis History of Any Multi-Drug Resistant Organisms: ESBL Date of last positivie culture/infection: 05/29/2018 MDRO Source:: ABDOMEN Past Surgical History: Bariatric Surgery, Hernia Repair, Orthopedic Surgery Additional Past Surgical History / Comment(s): feeding tube (removed in july 2018) , lt arm Past Psychological History: Anxiety, Depression, PTSD Smoking Status: Current every day smoker, Vaper Past Alcohol Use History: Abuse, Daily, Heavy Past Drug Use History: Marijuana, Prescription Drug Abuse <Teo King - Last Filed: 12/19/20 06:26> General Exam Limitations: no limitations General appearance: alert, in no apparent distress Head exam: Present: atraumatic, normocephalic Eye exam: Present: normal appearance, PERRL, EOMI. Absent: scleral icterus, conjunctival injection ENT exam: Present: other (Patient has a fracture of tooth #32. No dental abscess. No submandibular or neck swelling or tenderness) Neck exam: Present: normal inspection, full ROM. Absent: tenderness, meningismus, lymphadenopathy Respiratory exam: Present: normal lung sounds bilaterally. Absent: respiratory distress, wheezes, rales, rhonchi, stridor Cardiovascular Exam: Present: regular rate, normal rhythm, normal heart sounds. Absent: systolic murmur, diastolic murmur, rubs, gallop Neurological exam: Present: alert Psychiatric exam: Present: normal affect, anxious. Absent: depressed, agitated, manic, homicidal ideation, suicidal ideation Skin exam: Present: warm, dry, intact, normal color. Absent: rash <Teo King - Last Filed: 12/19/20 06:26> Course Vital Signs 12/19/20 04:34 Temperature 98.5 F Pulse Rate 101 H Respiratory 20 Rate Blood Pressure 118/69 O2 Sat by Pulse 100 Oximetry Medical Decision Making - Lab Data Lab Results 12/19/20 12/19/20 Range/Units 06:15 06:15 Urine Color Yellow Urine Appearance Clear (Clear) Urine pH 5.5 (5.0-8.0) Ur Specific [place] 1.030 (1.001-1.035) Urine Protein 1+ H (Negative) Urine Glucose (UA) Negative (Negative) Urine Ketones 1+ H (Negative) Urine Blood Negative (Negative) Urine Nitrite Negative (Negative) Urine Bilirubin Negative (Negative) Urine Urobilinogen 2.0 (<2.0) mg/dL Ur Leukocyte Esterase Negative (Negative) Urine RBC 2 (0-5) /hpf Urine WBC 1 (0-5) /hpf Ur Squamous Epith Cells 4 (0-4) /hpf Hyaline Casts 17 H (0-2) /lpf Urine Mucus Occasional H (None) /hpf Urine HCG, Qual Not Detected (Not Detectd) Urine Opiates Screen Not Detected (NotDetected) Ur Oxycodone Screen Not Detected (NotDetected) Urine Methadone Screen Not Detected (NotDetected) Ur Propoxyphene Screen Not Detected (NotDetected) Ur Barbiturates Screen Not Detected (NotDetected) U Tricyclic Antidepress Not Detected (NotDetected) Ur Phencyclidine Scrn Not Detected (NotDetected) Ur Amphetamines Screen Detected H (NotDetected) U Methamphetamines Scrn Not Detected (NotDetected) U Benzodiazepines Scrn Not Detected (NotDetected) Urine Cocaine Screen Not Detected (NotDetected) U Marijuana (THC) Screen Detected H (NotDetected) Disposition <Teo King - Last Filed: 12/19/20 06:26> Time of Disposition: 07:03 <Anish Sauer - Last Filed: 12/19/20 07:07> Clinical Impression: Psychosis, Toothache Disposition: TRANSFER TO PSYCH HOSP/UNIT Prescriptions: Amoxicillin 500 mg PO Q8H #30 cap Referrals: Nonstaff,Physician [Primary Care Provider] - 1-2 days
[2020-12-19 06:27] LABS: Appearance,Urine Clear (Clear); Bilirubin,Urine Negative (Negative); Blood,Urine Negative (Negative); Color,Urine Yellow; Glucose,Urine (UA) Negative (Negative); Hyaline Casts,Urine 17 /lpf (0-2); Ketones,Urine 1+ (Negative); Leukocyte Esterase,Urine Negative (Negative); Mucus,Urine Occasional /hpf; Nitrite,Urine Negative (Negative); PH, Urine 5.5 (5.0-8.0); Protein,Urine 1+ (Negative); RBC,Urine 2 /hpf (0-5); Squamous Epithelial Cell,Urine 4 /hpf (0-4); WBC,Urine 1 /hpf (0-5)
[2020-12-19 06:56] LABS: Amphetamine Screen,Urine Detected (NotDetected); Barbiturate Screen,Urine Not Detected (NotDetected); Benzodiazepines Screen,Urine Not Detected (NotDetected); Cocaine Screen,Urine Not Detected (NotDetected); Methadone Screen, Urine Not Detected (NotDetected); Opiate Screen,Urine Not Detected (NotDetected); Oxycodone Screen, Urine Not Detected (NotDetected); Phencyclidine Screen,Urine Not Detected (NotDetected); Tricyclic Antidepressant,Urine Not Detected (NotDetected); Urn Cannabinoid Scrn Detected (NotDetected)
[2020-12-19 07:26] LABS: Basophils % (A) 0 %; Eosinophils % (A) 0 %; HCT 33.3 % (34.0-46.0); HGB 11.4 gm/dL (11.4-16.0); Lymphocytes # (A) 1.6 k/uL (1.0-4.8); Lymphocytes % (A) 15 %; MCHC 34.3 g/dL (31.0-37.0); MCV 87.3 fL (80.0-100.0); Mean Platelet Volume 7.4; Monocytes # (A) 0.4 k/uL (0-1.0); Monocytes % (A) 3 %; Neutrophils # (A) 8.5 k/uL (1.3-7.7); Neutrophils % (A) 80 %; Platelet Count 414 k/uL (150-450); RBC 3.81 m/uL (3.80-5.40); RDW 14.5 % (11.5-15.5); WBC 10.6 k/uL (3.8-10.6)
[2020-12-19 07:32] LABS: ALT 16 U/L (4-34); AST 23 U/L (14-36); African American GFR (CKD) >90 (>60 ml/min/1.73 sqM); Albumin 4.6 g/dL (3.5-5.0); Alkaline Phosphatase 71 U/L (38-126); Anion Gap 12 mmol/L; Blood Urea Nitrogen 23 mg/dL (7-17); Calcium 9.4 mg/dL (8.4-10.2); Carbon Dioxide 17 mmol/L (22-30); Chloride 105 mmol/L (98-107); Glucose 105 mg/dL (74-99); Non-African American GFR(CKD) >90 (>60 ml/min/1.73 sqM); Potassium 4.3 mmol/L (3.5-5.1); Sodium 134 mmol/L (137-145); Total Bilirubin 0.5 mg/dL (0.2-1.3); Total Protein 7.5 g/dL (6.3-8.2)
[2020-12-19] MEDS ORDERED: LORazepam 1 MG TAB PO STA (08:06)
[2020-12-19] MEDS ORDERED: ZIPRASIDONE 20 MG VIAL IM STA (10:02)
[2020-12-19 11:15] VITALS: BP 102/66; PULSE 87; RESP 16
== END 2020-12-19 14:30 ==
LOC: EC 04:30
DX: K08.89 Other specified disorders of teeth and supporting structures (principal); F29 Unspecified psychosis not due to a substance or known physiological condition; K21.9 Gastro-esophageal reflux disease without esophagitis; F41.9 Anxiety disorder, unspecified; F32.9 Major depressive disorder, single episode, unspecified; F43.12 Post-traumatic stress disorder, chronic; F17.200 Nicotine dependence, unspecified, uncomplicated; F12.90 Cannabis use, unspecified, uncomplicated; Z98.84 Bariatric surgery status
CPT/HCPCS: 99284; 96372; 82075; 36415; 80053; 85025; 81001; 81025; 80306; 87635; J3486

== ENCOUNTER 2021-01-09 20:39 | Emergency (ER) | payer BC ==
[2021-01-09] MEDS ORDERED: DIPH,PERTUS(ACELL)TETVAC-LF 0.5 ML VIAL IM ONE (20:53)
[2021-01-09] MEDS ORDERED: LORazepam 2 MG/ML INJ IV STA ×2 (20:53→21:01)
[2021-01-09 20:55] VITALS: BP 116/84; PULSE 85; RESP 20
[2021-01-09 21:06] LABS: Basophils # (A) 0.1 k/uL (0-0.2); Basophils % (A) 1 %; Eosinophils # (A) 0.2 k/uL (0-0.7); Eosinophils % (A) 2 %; HCT 38.5 % (34.0-46.0); HGB 12.1 gm/dL (11.4-16.0); Lymphocytes # (A) 3.2 k/uL (1.0-4.8); Lymphocytes % (A) 39 %; MCH 28.3 pg (25.0-35.0); MCHC 31.4 g/dL (31.0-37.0); MCV 90.3 fL (80.0-100.0); Mean Platelet Volume 6.9; Monocytes # (A) 0.3 k/uL (0-1.0); Monocytes % (A) 3 %; Neutrophils # (A) 4.4 k/uL (1.3-7.7); Neutrophils % (A) 53 %; Platelet Count 400 k/uL (150-450); RBC 4.26 m/uL (3.80-5.40); RDW 14.5 % (11.5-15.5); WBC 8.3 k/uL (3.8-10.6)
[2021-01-09] MEDS ORDERED: DIAZEPAM 5 MG/ML 2 ML INJ IVP STA (21:11)
[2021-01-09 21:18] LABS: ALT 29 U/L (4-34); AST 36 U/L (14-36); African American GFR (CKD) >90 (>60 ml/min/1.73 sqM); Albumin 4.6 g/dL (3.5-5.0); Alkaline Phosphatase 70 U/L (38-126); Anion Gap 13 mmol/L; Blood Urea Nitrogen 9 mg/dL (7-17); Calcium 9.8 mg/dL (8.4-10.2); Carbon Dioxide 22 mmol/L (22-30); Chloride 105 mmol/L (98-107); Glucose 95 mg/dL (74-99); Non-African American GFR(CKD) >90 (>60 ml/min/1.73 sqM); Sodium 140 mmol/L (137-145); Total Bilirubin 0.3 mg/dL (0.2-1.3); Total Protein 7.9 g/dL (6.3-8.2)
[2021-01-09 21:22] LABS: INR 0.9 (<1.2); Partial Thromboplastin Time 20.9 sec (22.0-30.0); Prothrombin Time 9.8 sec (9.0-12.0)
[2021-01-09] MEDS ORDERED: LIDOCAINE/EPINEPHR/TETRACAINE 5 ML BOTTLE TOPICAL ONE (21:45)
--- NOTE | 2021-01-09 21:49 | CT ---
EXAMINATION TYPE: CT brain wo con DATE OF EXAM: 01/09/2021 COMPARISON: None HISTORY: Head trauma, LOC CT DLP: 1113.4 mGycm Automated exposure control for dose reduction was used. The ventricles have normal size. There is no mass effect nor midline shift. There is no sign of intra cranial hemorrhage. The calvarium is intact. There is normal aeration of the mastoid sinuses. Skull b ase is intact. IMPRESSION: Negative unenhanced head CT scan.
[2021-01-09 22:03] LABS: HCG,Qualitative Serum Not Detected
--- NOTE | 2021-01-09 22:08 | ED ---
Fall HPI - General Chief Complaint: Fall Stated Complaint: Fall, Head injury Time Seen by Provider: 01/09/21 20:50 Source: patient Mode of arrival: ambulatory - History of Present Illness Initial Comments: This 25-year-old female presents with a complaint of a fall. She cannot r emember exactly what happened. She is initially involved in quite a panic attack and has a difficult time giving history. History is obtained per her significant other. He relates that he came home on his lunch break and found her on the floor. She had a cut to her forehead with some blood on the floor as well. The exact time of loss of consciousness is unknown. The exact mechanism of the fall is unknown. Patient is hyperventilating and relates that she has a history of panic attacks as well as posttraumatic stress disorder. She normally takes Xanax for her anxiety reactions. Her tetanus apparently is up-to-date. After she receives benzodiazepine medication, she is feeling much improved. It appears as though her anxiety reaction has resolved. She relates that she tripped and fell and hit her head. She also relates that she was drinking alcohol tonight. She states that she had one glass of wine. She states that she has some minimal pain to her left wrist and left knee but she also has chronic pain to these areas normally and her current symptoms are minimal. She denies any other areas of pain. No other complaints or modifying factors. - Related Data Home Medications Medication Instructions Recorded Confirmed Dextroamphetamine/Amphetamine 30 mg PO BID 12/19/20 01/09/21 [Adderall] FLUoxetine HCL [PROzac] 10 mg PO DAILY 12/19/20 01/09/21 Ondansetron HCl [Zofran] 4 mg PO Q8H PRN 12/19/20 01/09/21 LORazepam [Ativan] 1 mg PO TID 01/09/21 01/09/21 Sertraline [Zoloft] 50 mg PO DAILY 01/09/21 01/09/21 buPROPion XL [Wellbutrin XL] 150 mg PO DAILY 01/09/21 01/09/21 busPIRone HCL 15 mg PO BID 01/09/21 01/09/21 Allergies Allergy/AdvReac Type Severity Reaction Status Date / Time No Known Allergies Allergy Verified 01/09/21 21:56 Review of Systems ROS Statement: Those systems with pertinent positive or pertinent negative responses have been documented in the HPI. ROS Other: All systems not noted in ROS Statement are negative. Past Medical History Past Medical History: GERD/Reflux Additional Past Medical History / Comment(s): gastric bypass 2015, perforated ulcer in may, sepsis History of Any Multi-Drug Resistant Organisms: ESBL Date of last positivie culture/infection: 05/29/2018 MDRO Source:: ABDOMEN Past Surgical History: Bariatric Surgery, Hernia Repair, Orthopedic Surgery Additional Past Surgical History / Comment(s): feeding tube (removed in july 2018) , lt arm Past Psychological History: Anxiety, Depression, PTSD Smoking Status: Current every day smoker, Vaper Past Alcohol Use History: Abuse, Daily, Heavy Past Drug Use History: Marijuana, Prescription Drug Abuse General Exam - General Exam Comments Initial Comments: GENERAL: The patient is well nourished and well hydrated. VITAL SIGNS: Heart rate, blood pressure, respiratory rate reviewed as recorded in nurse's notes. EYES: Pupils are round and reactive. Extraocular movements are intact. No conjunctival / lid redness or swelling. ENT: No external evidence of injury, swelling, or ecchymosis. Airway is patent. Throat is clear. NECK: Nontender. No swelling or evidence of injury. No subcutaneous emphysema. Trachea is midline. No thyroid mass. HEART: Regular rate and rhythm. Good peripheral pulses. LUNGS/CHEST: Breath sounds clear and equal bilaterally. No rales, rhonchi, or wheezes. No ecchymosis, subcutaneous emphysema, or tenderness. ABDOMEN: Abdomen soft without tenderness. No palpable masses or organomegaly. No peritoneal signs. No abdominal wall swelling or ecchymosis. EXTREMITIES: There is possible slight tenderness noted to the left wrist with excellent range of motion and no swelling noted. There is scant tenderness noted to the left anterior knee with excellent range of motion and no swelling. Normal muscle tone and function. No thoracolumbar tenderness. NEUROLOGIC: Sensation is grossly intact. Cranial nerve exam reveals face is symmetrical, tongue is midline, speech is clear. SKIN: No abrasions or ecchymosis is noted. No induration or masses noted. There is a 3.5 cm right lower forehead laceration noted. PSYCHIATRIC: Alert and oriented. Appears fairly anxious initially and in the wrists of a significant panic attack with hyperventilation. This is much improved on recheck after receiving medications. Limitations: no limitations Course Vital Signs 01/09/21 20:47 Pulse Rate 85 Respiratory 20 Rate Blood Pressure 116/84 Medical Decision Making - Medical Decision Making The patient was seen and examined. All diagnostics were reviewed. She does receive Ativan 1 mg IV initially and this later was repeated. She continues to have panic attack and receives 5 mg of Valium IV. Computed tomography scan of brain is negative. She is offered x-rays of her left wrist and left the but refuses. Overall, it is not felt as though any significant traumatic injury occurred to these areas. LET is applied to the right forehead wound. Excellent anesthesia is obtained. The wound was thoroughly cleansed and explored. No deep structures or foreign bodies are identified. The wound was closed with a total of 7 simple interrupted 6-0 nylon sutures. No complications were encountered. EKG shows a normal sinus rhythm at a rate of 68. No acute ST-T wave changes are identified. The MO intervals 124, QRS duration is 84, and the QTC intervals 440. The laboratory overall looks fairly well except for the alcohol came back at 120. She appears much better after receiving the medications for anxiety reaction. It is felt overall that she is stable for discharge. She is watched in the ER for a couple of hours. She is counseled regarding head injury and alcohol intoxication leaves in no identifiable distress. - Lab Data Result diagrams: 01/09/21 20:13 01/09/21 20:13 Lab Results 01/09/21 01/09/21 01/09/21 Range/Units 20:13 20:13 20:13 WBC 8.3 (3.8-10.6) k/uL RBC 4.26 (3.80-5.40) m/uL Hgb 12.1 (11.4-16.0) gm/dL Hct 38.5 (34.0-46.0) % MCV 90.3 (80.0-100.0) fL MCH 28.3 (25.0-35.0) pg MCHC 31.4 (31.0-37.0) g/dL RDW 14.5 (11.5-15.5) % Plt Count 400 (150-450) k/uL MPV 6.9 Neutrophils % 53 % Lymphocytes % 39 % Monocytes % 3 % Eosinophils % 2 % Basophils % 1 % Neutrophils # 4.4 (1.3-7.7) k/uL Lymphocytes # 3.2 (1.0-4.8) k/uL Monocytes # 0.3 (0-1.0) k/uL Eosinophils # 0.2 (0-0.7) k/uL Basophils # 0.1 (0-0.2) k/uL PT 9.8 (9.0-12.0) sec INR 0.9 (<1.2) APTT 20.9 L (22.0-30.0) sec Sodium 140 (137-145) mmol/L Potassium 5.0 (3.5-5.1) mmol/L Chloride 105 (98-107) mmol/L Carbon Dioxide 22 (22-30) mmol/L Anion Gap 13 mmol/L BUN 9 (7-17) mg/dL Creatinine 0.66 (0.52-1.04) mg/dL Est GFR (CKD-EPI)AfAm >90 (>60 ml/min/1.73 sqM) Est GFR (CKD-EPI)NonAf >90 (>60 ml/min/1.73 sqM) Glucose 95 (74-99) mg/dL Calcium 9.8 (8.4-10.2) mg/dL Total Bilirubin 0.3 (0.2-1.3) mg/dL AST 36 (14-36) U/L ALT 29 (4-34) U/L Alkaline Phosphatase 70 (38-126) U/L Total Protein 7.9 (6.3-8.2) g/dL Albumin 4.6 (3.5-5.0) g/dL HCG, Qual Serum Alcohol mg/dL 01/09/21 Range/Units 21:39 WBC (3.8-10.6) k/uL RBC (3.80-5.40) m/uL Hgb (11.4-16.0) gm/dL Hct (34.0-46.0) % MCV (80.0-100.0) fL MCH (25.0-35.0) pg MCHC (31.0-37.0) g/dL RDW (11.5-15.5) % Plt Count (150-450) k/uL MPV Neutrophils % % Lymphocytes % % Monocytes % % Eosinophils % % Basophils % % Neutrophils # (1.3-7.7) k/uL Lymphocytes # (1.0-4.8) k/uL Monocytes # (0-1.0) k/uL Eosinophils # (0-0.7) k/uL Basophils # (0-0.2) k/uL PT (9.0-12.0) sec INR (<1.2) APTT (22.0-30.0) sec Sodium (137-145) mmol/L Potassium (3.5-5.1) mmol/L Chloride (98-107) mmol/L Carbon Dioxide (22-30) mmol/L Anion Gap mmol/L BUN (7-17) mg/dL Creatinine (0.52-1.04) mg/dL Est GFR (CKD-EPI)AfAm (>60 ml/min/1.73 sqM) Est GFR (CKD-EPI)NonAf (>60 ml/min/1.73 sqM) Glucose (74-99) mg/dL Calcium (8.4-10.2) mg/dL Total Bilirubin (0.2-1.3) mg/dL AST (14-36) U/L ALT (4-34) U/L Alkaline Phosphatase (38-126) U/L Total Protein (6.3-8.2) g/dL Albumin (3.5-5.0) g/dL HCG, Qual Not Detected Serum Alcohol 120 mg/dL Disposition Clinical Impression: Head injury, Fall, Concussion, Facial laceration, Alcohol intoxication Disposition: HOME SELF-CARE Instructions (If sedation given, give patient instructions): Concussion (ED), Alcohol Intoxication (ED), Panic Attack (ED), Facial Laceration (ED) Additional Instructions: Please utilize Tylenol and/or Motrin if needed for pain. We recommend that you follow-up with her primary care and approximate 7 days for suture removal. Is patient prescribed a controlled substance at d/c from ED?: No Referrals: Nonstaff,Physician [Primary Care Provider] - 1-2 days Time of Disposition: 22:52
[2021-01-09 22:10] LABS: Alcohol 120 mg/dL
[2021-01-09] MEDS ORDERED: BACITRACIN OINT 1 EACH PACKET TOPICAL STA (22:27)
== END 2021-01-09 23:05 | disposition home or self-care (01) ==
LOC: EC 20:39
DX: S06.0X9A Concussion with loss of consciousness of unspecified duration, initial encounter (principal); S01.81XA Laceration without foreign body of other part of head, initial encounter; F10.129 Alcohol abuse with intoxication, unspecified; K21.9 Gastro-esophageal reflux disease without esophagitis; F32.9 Major depressive disorder, single episode, unspecified; F41.9 Anxiety disorder, unspecified; F17.290 Nicotine dependence, other tobacco product, uncomplicated; F12.90 Cannabis use, unspecified, uncomplicated; F15.90 Other stimulant use, unspecified, uncomplicated; Z79.899 Other long term (current) drug therapy; Z98.84 Bariatric surgery status; Y90.6 Blood alcohol level of 120-199 mg/100 ml; W01.0XXA Fall on same level from slipping, tripping and stumbling without subsequent striking against object, initial encounter
CPT/HCPCS: 36415; 93005; 80053; 85025; 85610; 85730; 84703; 80320; 70450; 99284; 96374; 96375; J2060; J3360

== ENCOUNTER 2021-04-11 15:20 | Emergency (ER) | payer BC ==
[2021-04-11 15:39] VITALS: BP 113/65; PULSE 84; RESP 18; TEMP 98.2
[2021-04-11] MEDS ORDERED: diphenhydrAMINE 50 MG/ML 1 ML VIAL IM STA (16:26)
--- NOTE | 2021-04-11 16:34 | ED ---
Psych HPI - General Source: patient, EMS, RN notes reviewed Mode of arrival: EMS <Tyson Hardin - Last Filed: 04/11/21 18:58> <Payton Ocasio - Last Filed: 04/13/21 12:32> - General Chief Complaint: Psychiatric Symptoms Stated Complaint: mental health Time Seen by Provider: 04/11/21 16:03 - History of Present Illness Initial Comments: A pleasant 25-year-old female who is 16 weeks . Patient states that she stopped her anxiolytic medication and is now having more panic attacks since stopping medication. Patient still taking Wellbutrin. Patient has a primary care physician in [place]. Patient sees [facility] for obstetric services. Patient states that she is having recurrent panic attacks. Patient states that she has hyperventilation, chest tightness, and overwhelming anxiety at times. She states this is happened several times over the past several days. Patient does admit to cigarette smoking and alcohol use. In fact has an alcohol level of 0.96 here in the ED. Patient requesting psychiatric evaluation. However she denies any suicidality or homicidality. No headache, no fever or chills, no changes in vision or hearing, no sore throat or difficulty with speech, no neck pain, no abdominal pain, no nausea or vomiting, no changes in urination or bowel movements, no numbness or tingling, no extremity pain, no skin rashes or lesions. (Tyson Hardin) - Related Data Home Medications Medication Instructions Recorded Confirmed Dextroamphetamine/Amphetamine 30 mg PO BID 12/19/20 01/09/21 [Adderall] FLUoxetine HCL [PROzac] 10 mg PO DAILY 12/19/20 01/09/21 Ondansetron HCl [Zofran] 4 mg PO Q8H PRN 12/19/20 01/09/21 LORazepam [Ativan] 1 mg PO TID 01/09/21 01/09/21 Sertraline [Zoloft] 50 mg PO DAILY 01/09/21 01/09/21 buPROPion XL [Wellbutrin XL] 150 mg PO DAILY 01/09/21 01/09/21 busPIRone HCL 15 mg PO BID 01/09/21 01/09/21 Previous Rx's Medication Instructions Recorded diphenhydrAMINE [Benadryl] 25 mg PO QID PRN #24 capsule 04/11/21 Allergies Allergy/AdvReac Type Severity Reaction Status Date / Time No Known Allergies Allergy Verified 04/11/21 15:36 Review of Systems ROS Other: All systems not noted in ROS Statement are negative. <Tyson Hardin - Last Filed: 04/11/21 18:58> ROS Other: All systems not noted in ROS Statement are negative. <Payton Ocasio Scot - Last Filed: 04/13/21 12:32> ROS Statement: Those systems with pertinent positive or pertinent negative responses have been documented in the HPI. Past Medical History Past Medical History: GERD/Reflux Additional Past Medical History / Comment(s): gastric bypass 2015, perforated ul cer in may, sepsis History of Any Multi-Drug Resistant Organisms: ESBL Date of last positivie culture/infection: 05/29/2018 MDRO Source:: ABDOMEN Past Surgical History: Bariatric Surgery, Hernia Repair, Orthopedic Surgery Additional Past Surgical History / Comment(s): feeding tube (removed in july 2018) , lt arm Past Psychological History: Anxiety, Depression, PTSD Smoking Status: Current every day smoker, Vaper Past Alcohol Use History: Abuse, Daily, Heavy Past Drug Use History: Marijuana, Prescription Drug Abuse <Tyson Hardin - Last Filed: 04/11/21 18:58> General Exam Limitations: no limitations General appearance: alert, in no apparent distress Head exam: Present: atraumatic, normocephalic, normal inspection Eye exam: Present: normal appearance, PERRL, EOMI. Absent: scleral icterus, conjunctival injection, periorbital swelling ENT exam: Present: normal exam, mucous membranes moist Neck exam: Present: normal inspection. Absent: tenderness, meningismus, lymphadenopathy Respiratory exam: Present: normal lung sounds bilaterally. Absent: respiratory distress, wheezes, rales, rhonchi, stridor Cardiovascular Exam: Present: regular rate, normal rhythm, normal heart sounds. Absent: systolic murmur, diastolic murmur, rubs, gallop, clicks GI/Abdominal exam: Present: soft, normal bowel sounds. Absent: distended, tenderness, guarding, rebound, rigid Extremities exam: Present: normal inspection, full ROM, normal capillary refill. Absent: tenderness, pedal edema, joint swelling, calf tenderness Back exam: Present: normal inspection Neurological exam: Present: alert, oriented X3, CN II-XII intact Psychiatric exam: Present: normal affect, normal mood Skin exam: Present: warm, dry, intact, normal color. Absent: rash <WilfredTyson - Last Filed: 04/11/21 18:58> - General Exam Comments Initial Comments: Healthy-appearing 25-year-old female in no significant distress at this time I am evaluating her. Vital signs stable, patient afebrile. Cranial nerves II through XII grossly intact. No evidence of distress (Tyson Hardin) Course <Tyson Hardin - Last Filed: 04/11/21 18:58> Vital Signs 04/11/21 15:36 Temperature 98.2 F Pulse Rate 84 Respiratory 18 Rate Blood Pressure 113/65 O2 Sat by Pulse 100 Oximetry - Reevaluation(s) Reevaluation #1: 04/11/21 18:59 Patient reevaluated his rest comfortably in the room. No distress. Still denying suicidal homicidal ideation. Vital signs stable, patient afebrile prior to discharge. Was cleared by EPS for outpatient follow-up. (Tyson Hardin) Medical Decision Making <Tyson Hardin - Last Filed: 04/11/21 18:58> <Payton Ocasio - Last Filed: 04/13/21 12:32> - Medical Decision Making Patient presents with recurrent symptoms of anxiety. Patient in no distress at time of seeing her. We'll order an EPS evaluation. Patient does, positive for alcohol at 0.92. We'll give the patient one dose of diphenhydramine for anxiety, heart tone of auscultation, EKG, planned for reevaluation and likely discharge. Patient denies suicidality or homicidality. Patient was counseled on avoidance of cigarettes and alcohol. Note that the patient has no vaginal bleeding or vaginal discharge. No abdominal pain. (Tyson Hardin) I was available for consultation in the emergency department. The history and physical exam were done by the midlevel provider. I was consulted for this patients care. I reviewed the case with the midlevel provider and based on their presentation of the patient, I agree with the assessment, medical decision making and plan of care as documented. Chart was dictated using [employer] dictation software. Attempts were made to correct any dictation errors however some typographical errors may persist. Patient was seen during a national state of emergency due to the Covid-19 pandemic. (Payton Ocasio) - Lab Data Lab Results 04/11/21 Range/Units 18:03 Urine Opiates Screen Not Detected (NotDetected) Ur Oxycodone Screen Not Detected (NotDetected) Urine Methadone Screen Not Detected (NotDetected) Ur Propoxyphene Screen Not Detected (NotDetected) Ur Barbiturates Screen Not Detected (NotDetected) U Tricyclic Antidepress Not Detected (NotDetected) Ur Phencyclidine Scrn Not Detected (NotDetected) Ur Amphetamines Screen Not Detected (NotDetected) U Methamphetamines Scrn Not Detected (NotDetected) U Benzodiazepines Scrn Detected H (NotDetected) Urine Cocaine Screen Not Detected (NotDetected) U Marijuana (THC) Screen Detected H (NotDetected) Disposition Is patient prescribed a controlled substance at d/c from ED?: No Time of Disposition: 19:00 <Tyson Hardin - Last Filed: 04/11/21 18:58> <Payton Ocasio - Last Filed: 04/13/21 12:32> Clinical Impression: Acute anxiety, Current determined by history, Alcohol intoxication, Cigarette smoker, Marijuana use Disposition: HOME SELF-CARE Condition: Stable Instructions (If sedation given, give patient instructions): Alcohol Syndrome (DC), How to Stop Smoking (ED), Alcohol Use Disorder (ED) Additional Instructions: Follow-up with your regular physician as directed. Return to the ER immediately if any symptoms worsen, new symptoms arise, or any other problems develop. Stopped use of alcohol, cigarettes, and marijuana. 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 He continues the diphenhydramine for anxiety. Make sure he follow-up with your primary care physician. Call tomorrow morning for follow-up. Prescriptions: diphenhydrAMINE [Benadryl] 25 mg PO QID PRN #24 capsule PRN Reason: Anxiety Referrals: Myranda Max MD [Primary Care Provider] - As Soon As Possible Daniel De La Rosa MD [STAFF PHYSICIAN] - 1-2 days
[2021-04-11 18:20] LABS: Cocaine Screen,Urine Not Detected (NotDetected); Opiate Screen,Urine Not Detected (NotDetected); Phencyclidine Screen,Urine Not Detected (NotDetected); Urn Cannabinoid Scrn Detected (NotDetected)
[2021-04-11 18:21] LABS: Amphetamine Screen,Urine Not Detected (NotDetected); Barbiturate Screen,Urine Not Detected (NotDetected); Benzodiazepines Screen,Urine Detected (NotDetected); Methadone Screen, Urine Not Detected (NotDetected); Oxycodone Screen, Urine Not Detected (NotDetected); Tricyclic Antidepressant,Urine Not Detected (NotDetected)
== END 2021-04-11 19:32 | disposition home or self-care (01) ==
LOC: EC 15:20
DX: O99.342 Other mental disorders complicating pregnancy, second trimester (principal); F41.0 Panic disorder [episodic paroxysmal anxiety]; F10.129 Alcohol abuse with intoxication, unspecified; F17.210 Nicotine dependence, cigarettes, uncomplicated; F12.90 Cannabis use, unspecified, uncomplicated; K21.9 Gastro-esophageal reflux disease without esophagitis; Z98.84 Bariatric surgery status; Z3A.16 16 weeks gestation of pregnancy; Y90.9 Presence of alcohol in blood, level not specified
CPT/HCPCS: 99284; 96372; 82075; 80306; J1200

== ENCOUNTER 2021-04-27 14:29 | Emergency (ER) | payer BC, OTHER ==
[2021-04-27 14:33] VITALS: TEMP 98.8
[2021-04-27] MEDS ORDERED: diphenhydrAMINE 50 MG/ML 1 ML VIAL IVP STA (15:37)
[2021-04-27] MEDS ORDERED: METOCLOPRAMIDE 5 MG/ML 2 ML VIAL IVP STA (15:37)
[2021-04-27 15:45] VITALS: BP 98/67; PULSE 67; RESP 18
[2021-04-27] MEDS ORDERED: DEXTROSE 5%-0.9% NACL 1,000 ML IV SCH (15:45)
[2021-04-27] MEDS ORDERED: SODIUM CHLORIDE 0.9% 1,000 ML IV ONE (15:46)
[2021-04-27 15:49] LABS: Basophils % (A) 0 %; Eosinophils % (A) 1 %; HCT 34.4 % (34.0-46.0); HGB 10.9 gm/dL (11.4-16.0); Lymphocytes # (A) 1.6 k/uL (1.0-4.8); Lymphocytes % (A) 22 %; MCH 28.2 pg (25.0-35.0); MCHC 31.7 g/dL (31.0-37.0); MCV 88.9 fL (80.0-100.0); Mean Platelet Volume 7.6; Monocytes # (A) 0.3 k/uL (0-1.0); Monocytes % (A) 4 %; Neutrophils # (A) 5.2 k/uL (1.3-7.7); Neutrophils % (A) 73 %; Platelet Count 292 k/uL (150-450); RBC 3.87 m/uL (3.80-5.40); RDW 15.2 % (11.5-15.5); WBC 7.2 k/uL (3.8-10.6)
[2021-04-27 15:55] LABS: Appearance,Urine Clear (Clear); Bilirubin,Urine Negative (Negative); Blood,Urine Negative (Negative); Color,Urine Yellow; Glucose,Urine (UA) Negative (Negative); Ketones,Urine Negative (Negative); Leukocyte Esterase,Urine Trace (Negative); Mucus,Urine Rare /hpf; Nitrite,Urine Negative (Negative); PH, Urine 6.5 (5.0-8.0); Protein,Urine Negative (Negative); RBC,Urine <1 /hpf (0-5); Specific Gravity,Urine 1.018 (1.001-1.035); Squamous Epithelial Cell,Urine 4 /hpf (0-4); Urobilinogen,Urine <2.0 mg/dL (<2.0); WBC,Urine 1 /hpf (0-5)
[2021-04-27 16:03] LABS: ALT 11 U/L (4-34); AST 30 U/L (14-36); African American GFR (CKD) >90 (>60 ml/min/1.73 sqM); Albumin 3.6 g/dL (3.5-5.0); Alkaline Phosphatase 35 U/L (38-126); Anion Gap 7 mmol/L; Blood Urea Nitrogen 8 mg/dL (7-17); Calcium 9.3 mg/dL (8.4-10.2); Carbon Dioxide 19 mmol/L (22-30); Chloride 106 mmol/L (98-107); Glucose 89 mg/dL (74-99); Lipase 98 U/L (23-300); Non-African American GFR(CKD) >90 (>60 ml/min/1.73 sqM); Sodium 132 mmol/L (137-145); Total Bilirubin 0.6 mg/dL (0.2-1.3)
--- NOTE | 2021-04-27 16:05 | ED ---
Nausea/Vomiting/Diarrhea HPI - General Chief complaint: Nausea/Vomiting/Diarrhea Stated complaint: flulike symptoms Time Seen by Provider: 04/27/21 14:37 Source: patient Mode of arrival: ambulatory Limitations: no limitations - History of Present Illness Initial comments: This 25-year-old female who is 16 weeks presents to the emergency department with nausea and vomiting that began last night. Patient states she is here because she feels like she is dehydrated. Patient states she had upper respiratory infection last week and has still recovering from it, but feels much better. She states she has been able to keep fluids down but states that she drinks too quickly she vomits it up. Patient denies any vaginal bleeding. Patient denies any chest pain, shortness breath, abdominal pain, fever, hemoptysis, headache, change in vision, change in bowel or bladder. - Related Data Home Medications Medication Instructions Recorded Confirmed Ondansetron HCl [Zofran] 4 mg PO Q6H PRN 12/19/20 04/27/21 Sertraline [Zoloft] 50 mg PO DAILY 01/09/21 04/27/21 buPROPion XL [Wellbutrin XL] 150 mg PO DAILY 01/09/21 04/27/21 busPIRone HCL 15 mg PO BID 01/09/21 04/27/21 Pnv,Calcium 72/Iron/Folic Acid 1 tab PO DAILY 04/27/21 04/27/21 [ Plus Tablet] Previous Rx's Medication Instructions Recorded Ondansetron Odt [Zofran ODT] 4 mg PO Q8HR PRN #10 tab 04/27/21 Allergies Allergy/AdvReac Type Severity Reaction Status Date / Time No Known Allergies Allergy Verified 04/27/21 15:02 Review of Systems ROS Statement: Those systems with pertinent positive or pertinent negative responses have been documented in the HPI. ROS Other: All systems not noted in ROS Statement are negative. Past Medical History Past Medical History: GERD/Reflux Additional Past Medical History / Comment(s): gastric bypass 2015, perforated ulcer in may, sepsis History of Any Multi-Drug Resistant Organisms: ESBL Date of last positivie culture/infection: 05/29/2018 MDRO Source:: ABDOMEN Past Surgical History: Bariatric Surgery, Hernia Repair, Orthopedic Surgery Additional Past Surgical History / Comment(s): feeding tube (removed in july 2018) , lt arm Past Psychological History: Anxiety, Depression, PTSD Smoking Status: Current every day smoker, Vaper Past Alcohol Use History: Abuse, Daily, Heavy Past Drug Use History: Marijuana, Prescription Drug Abuse General Exam Limitations: no limitations General appearance: alert, in no apparent distress Head exam: Present: atraumatic, normocephalic Eye exam: Present: EOMI ENT exam: Present: mucous membranes moist Neck exam: Present: full ROM Respiratory exam: Present: normal lung sounds bilaterally. Absent: respiratory distress, wheezes, rales, rhonchi, stridor Cardiovascular Exam: Present: regular rate, normal rhythm, normal heart sounds. Absent: systolic murmur, diastolic murmur, rubs, gallop, clicks GI/Abdominal exam: Present: soft, normal bowel sounds. Absent: distended, tenderness, guarding, rebound, rigid Extremities exam: Present: full ROM Back exam: Present: full ROM. Absent: tenderness, CVA tenderness (R), CVA tenderness (L) Neurological exam: Present: alert, oriented X3, CN II-XII intact Psychiatric exam: Present: normal affect, normal mood Skin exam: Present: warm, dry, intact, normal color. Absent: rash Course Vital Signs 04/27/21 04/27/21 14:30 15:44 Temperature 98.8 F Pulse Rate 89 67 Respiratory 16 18 Rate Blood Pressure 134/74 98/67 O2 Sat by Pulse 100 99 Oximetry - Reevaluation(s) Reevaluation #1: 04/27/21 16:51 Patient states she currently feels a lot better. Patient was able to eat crackers and drink water by mouth without any nausea or vomiting or abdominal pain. Medical Decision Making - Medical Decision Making This 25-year-old female who is 16 weeks presents to the emergency department with nausea and vomiting that began last night. Patient states her STEEL ERECTOR APPRENTICE prescribed her Zofran but states she has since ran out of it. Labs are unremarkable. Urine unremarkable. Patient assessed and was seen by baby mother who states her results were good with heart tones with heart beat 140- 150's. After giving fluids, Benadryl, Reglan here, patient was able to tolerate food by mouth and drank water without any nausea or vomiting. Patient states she feels good now and agrees to go home and to return if anything worsens or returns. Patient was sent home with Zofran and told to follow-up with STEEL ERECTOR APPRENTICE in next 24-48 hours. Patient given strict return precautions. Patient verbally agreed to plan. Patient sent home stable condition. Case was discussed with my attending, . - Lab Data Result diagrams: 04/27/21 15:36 04/27/21 15:36 Lab Results 04/27/21 04/27/21 04/27/21 Range/Units 15:36 15:36 15:36 WBC 7.2 (3.8-10.6) k/uL RBC 3.87 (3.80-5.40) m/uL Hgb 10.9 L (11.4-16.0) gm/dL Hct 34.4 (34.0-46.0) % MCV 88.9 (80.0-100.0) fL MCH 28.2 (25.0-35.0) pg MCHC 31.7 (31.0-37.0) g/dL RDW 15.2 (11.5-15.5) % Plt Count 292 (150-450) k/uL MPV 7.6 Neutrophils % 73 % Lymphocytes % 22 % Monocytes % 4 % Eosinophils % 1 % Basophils % 0 % Neutrophils # 5.2 (1.3-7.7) k/uL Lymphocytes # 1.6 (1.0-4.8) k/uL Monocytes # 0.3 (0-1.0) k/uL Eosinophils # 0.0 (0-0.7) k/uL Basophils # 0.0 (0-0.2) k/uL Sodium 132 L (137-145) mmol/L Potassium 5.0 (3.5-5.1) mmol/L Chloride 106 (98-107) mmol/L Carbon Dioxide 19 L (22-30) mmol/L Anion Gap 7 mmol/L BUN 8 (7-17) mg/dL Creatinine 0.53 (0.52-1.04) mg/dL Est GFR (CKD-EPI)AfAm >90 (>60 ml/min/1.73 sqM) Est GFR (CKD-EPI)NonAf >90 (>60 ml/min/1.73 sqM) Glucose 89 (74-99) mg/dL Calcium 9.3 (8.4-10.2) mg/dL Total Bilirubin 0.6 (0.2-1.3) mg/dL AST 30 (14-36) U/L ALT 11 (4-34) U/L Alkaline Phosphatase 35 L (38-126) U/L Total Protein 7.0 (6.3-8.2) g/dL Albumin 3.6 (3.5-5.0) g/dL Lipase 98 (23-300) U/L Urine Color Yellow Urine Appearance Clear (Clear) Urine pH 6.5 (5.0-8.0) Ur Specific [place] 1.018 (1.001-1.035) Urine Protein Negative (Negative) Urine Glucose (UA) Negative (Negative) Urine Ketones Negative (Negative) Urine Blood Negative (Negative) Urine Nitrite Negative (Negative) Urine Bilirubin Negative (Negative) Urine Urobilinogen <2.0 (<2.0) mg/dL Ur Leukocyte Esterase Trace H (Negative) Urine RBC <1 (0-5) /hpf Urine WBC 1 (0-5) /hpf Ur Squamous Epith Cells 4 (0-4) /hpf Urine Mucus Rare H (None) /hpf Disposition Clinical Impression: Vomiting during Disposition: HOME SELF-CARE Condition: Stable Instructions (If sedation given, give patient instructions): Acute Nausea and Vomiting (ED) Prescriptions: Ondansetron Odt [Zofran ODT] 4 mg PO Q8HR PRN #10 tab PRN Reason: Nausea Is patient prescribed a controlled substance at d/c from ED?: No Referrals: Myranda Max MD [Primary Care Provider] - 1-2 days Time of Disposition: 17:22
== END 2021-04-27 17:41 | disposition home or self-care (01) ==
LOC: EC 14:29
DX: O21.8 Other vomiting complicating pregnancy (principal); K21.9 Gastro-esophageal reflux disease without esophagitis; F41.9 Anxiety disorder, unspecified; F32.A Depression, unspecified; F43.12 Post-traumatic stress disorder, chronic; F17.290 Nicotine dependence, other tobacco product, uncomplicated; F12.90 Cannabis use, unspecified, uncomplicated; Z98.84 Bariatric surgery status; Z3A.16 16 weeks gestation of pregnancy
CPT/HCPCS: 36415; 80053; 81001; 83690; 85025; 96361; 96374; 96375; 99284

== ENCOUNTER 2021-05-03 14:35 | Emergency (ER) | payer OTHER ==
[2021-05-03 15:00] LABS: Glucose,Whole Blood 267 mg/dL (75-99)
[2021-05-03] MEDS ORDERED: diphenhydrAMINE 50 MG/ML 1 ML VIAL IVP STA (15:21)
[2021-05-03 15:23] VITALS: BP 113/65; PULSE 77; RESP 14; TEMP 98
--- NOTE | 2021-05-03 15:24 | ED ---
General Adult HPI - General Chief complaint: Abdominal Pain Stated complaint: Hyperglycemia & ulcer Time Seen by Provider: 05/03/21 15:04 Source: patient Mode of arrival: ambulatory Limitations: no limitations - History of Present Illness Initial comments: Dictation was produced using [employer] dictation software. please excuse any grammatical, word or spelling errors. Chief Complaint: 25-year-old female who is 17 weeks presents to the ER concerned of a perforated ulcer History of Present Illness: Patient is a 25-year-old female presents to the emergency department for concerns of perforated ulcer. She is having left upper quadrant abdominal pain. Patient states that in 2019 she had a perforated ulcer after consultations from a bariatric surgery. Patient was at her private branch exchange service advisor's office today and she allegedly told him of her complaints and was sent to the emergency department after her OB evaluation. Patient requesting diphenhydramine to treat her anxiety. No constitutional symptoms. Denies any pelvic pain. No vaginal discharge or vaginal bleeding. The ROS documented in this emergency department record has been reviewed and confirmed by me. Those systems with pertinent positive or negative responses have been documented in the HPI. All other systems are other negative and/or noncontributory. PHYSICAL EXAM: General Impression: Alert and oriented x3, not in acute distress HEENT: Normocephalic atraumatic, extra-ocular movements intact, pupils equal and reactive to light bilaterally, mucous membranes moist. Cardiovascular: Heart regular rate and rhythm Chest: Able to complete full sentences, no retractions, no tachypnea Abdomen: abdomen soft, mild tenderness to the left upper quadrant, non- distended, no organomegaly, Musculoskeletal: Pulses present and equal in all extremities, no peripheral edema Motor: no focal deficits noted Neurological: CN II-XII grossly intact, no focal motor or sensory deficits noted Skin: Intact with no visualized rashes Psych: Normal affect and mood ED course: 25-year-old female presents with left upper quadrant abdominal pain. She is 17 weeks . She is concerned that she has a perforated ulcer again. Patient has benign abdominal exam. Vital signs upon arrival are within acceptable limits. Laboratory evaluation obtained. Hemoglobin is 9.9. Rest of CBC unremarkable. Metabolic panel shows glucose of 68. Point of care in triage [facility] prior to the metabolic panel was 267. Abdominal labs negative. Urinalysis negative. Patient's blood sugar was checked after metabolic panel was rechecked and it was 101 without any oral intake or any imaging. There is concern of a glucose discrepancy on the metabolic panel. She received some Benadryl. No other cause for hyperglycemia. Patient evaluated at 4:35 PM as if she had any symptoms of hypoglycemia. She states she feels fine at the moment. Patient given GI cocktail withimprovement of her symptoms. This point there is no life- threatening issues noted. Patient be discharged. She is given referral to outpatient gastroenterology. heart tones auscultated with a rate between 120 03/31/1943 over the course of 1 minute. - Related Data Home Medications Medication Instructions Recorded Confirmed Ondansetron HCl [Zofran] 4 mg PO Q12H PRN 12/19/20 05/03/21 Sertraline [Zoloft] 50 mg PO DAILY 01/09/21 05/03/21 buPROPion XL [Wellbutrin XL] 150 mg PO DAILY 01/09/21 05/03/21 busPIRone HCL 15 mg PO BID 01/09/21 05/03/21 diphenhydrAMINE [Benadryl] 25 mg PO HS PRN 05/03/21 05/03/21 Allergies Allergy/AdvReac Type Severity Reaction Status Date / Time No Known Allergies Allergy Verified 05/03/21 16:10 Review of Systems ROS Statement: Those systems with pertinent positive or pertinent negative responses have been documented in the HPI. ROS Other: All systems not noted in ROS Statement are negative. Past Medical History Past Medical History: GERD/Reflux Additional Past Medical History / Comment(s): gastric bypass 2015, perforated ulcer in may, sepsis History of Any Multi-Drug Resistant Organisms: ESBL Date of last positivie culture/infection: 05/29/2018 MDRO Source:: ABDOMEN Past Surgical History: Bariatric Surgery, Hernia Repair, Orthopedic Surgery Additional Past Surgical History / Comment(s): feeding tube (removed in july 2018) , lt arm Past Psychological History: Anxiety, Depression, PTSD Smoking Status: Current every day smoker, Vaper Past Alcohol Use History: None Reported, Abuse, Daily, Heavy Past Drug Use History: Marijuana, Prescription Drug Abuse General Exam Limitations: no limitations Course Vital Signs 05/03/21 05/03/21 14:37 15:22 Temperature 97.9 F 98 F Pulse Rate 99 77 Respiratory 20 14 Rate Blood Pressure 123/70 113/65 O2 Sat by Pulse 95 98 Oximetry Medical Decision Making - Lab Data Result diagrams: 05/03/21 15:24 05/03/21 15:24 Lab Results 05/03/21 05/03/21 05/03/21 Range/Units 14:59 15:24 15:24 WBC 9.8 (3.8-10.6) k/uL RBC 3.54 L (3.80-5.40) m/uL Hgb 9.9 L (11.4-16.0) gm/dL Hct 31.7 L (34.0-46.0) % MCV 89.7 (80.0-100.0) fL MCH 28.1 (25.0-35.0) pg MCHC 31.3 (31.0-37.0) g/dL RDW 15.6 H (11.5-15.5) % Plt Count 316 (150-450) k/uL MPV 7.3 Neutrophils % 81 % Lymphocytes % 14 % Monocytes % 4 % Eosinophils % 0 % Basophils % 0 % Neutrophils # 7.9 H (1.3-7.7) k/uL Lymphocytes # 1.3 (1.0-4.8) k/uL Monocytes # 0.4 (0-1.0) k/uL Eosinophils # 0.0 (0-0.7) k/uL Basophils # 0.0 (0-0.2) k/uL Hypochromasia Slight Sodium (137-145) mmol/L Potassium (3.5-5.1) mmol/L Chloride (98-107) mmol/L Carbon Dioxide (22-30) mmol/L Anion Gap mmol/L BUN (7-17) mg/dL Creatinine (0.52-1.04) mg/dL Est GFR (CKD-EPI)AfAm (>60 ml/min/1.73 sqM) Est GFR (CKD-EPI)NonAf (>60 ml/min/1.73 sqM) Glucose (74-99) mg/dL POC Glucose (mg/dL) 267 H (75-99) mg/dL POC Glu Plan Rep ID Rhoda Izquierdo Calcium (8.4-10.2) mg/dL Total Bilirubin (0.2-1.3) mg/dL AST (14-36) U/L ALT (4-34) U/L Alkaline Phosphatase (38-126) U/L Total Protein (6.3-8.2) g/dL Albumin (3.5-5.0) g/dL Lipase (23-300) U/L Urine Color Light Yellow Urine Appearance Clear (Clear) Urine pH 6.5 (5.0-8.0) Ur Specific [place] 1.007 (1.001-1.035) Urine Protein Negative (Negative) Urine Glucose (UA) Negative (Negative) Urine Ketones Negative (Negative) Urine Blood Negative (Negative) Urine Nitrite Negative (Negative) Urine Bilirubin Negative (Negative) Urine Urobilinogen <2.0 (<2.0) mg/dL Ur Leukocyte Esterase Negative (Negative) 05/03/21 05/03/21 Range/Units 15:24 16:37 WBC (3.8-10.6) k/uL RBC (3.80-5.40) m/uL Hgb (11.4-16.0) gm/dL Hct (34.0-46.0) % MCV (80.0-100.0) fL MCH (25.0-35.0) pg MCHC (31.0-37.0) g/dL RDW (11.5-15.5) % Plt Count (150-450) k/uL MPV Neutrophils % % Lymphocytes % % Monocytes % % Eosinophils % % Basophils % % Neutrophils # (1.3-7.7) k/uL Lymphocytes # (1.0-4.8) k/uL Monocytes # (0-1.0) k/uL Eosinophils # (0-0.7) k/uL Basophils # (0-0.2) k/uL Hypochromasia Sodium 134 L (137-145) mmol/L Potassium 4.5 (3.5-5.1) mmol/L Chloride 108 H (98-107) mmol/L Carbon Dioxide 19 L (22-30) mmol/L Anion Gap 7 mmol/L BUN 6 L (7-17) mg/dL Creatinine 0.54 (0.52-1.04) mg/dL Est GFR (CKD-EPI)AfAm >90 (>60 ml/min/1.73 sqM) Est GFR (CKD-EPI)NonAf >90 (>60 ml/min/1.73 sqM) Glucose 68 L (74-99) mg/dL POC Glucose (mg/dL) 101 H (75-99) mg/dL POC Glu Plan Rep ID Denae Go Calcium 8.8 (8.4-10.2) mg/dL Total Bilirubin 0.4 (0.2-1.3) mg/dL AST 21 (14-36) U/L ALT 12 (4-34) U/L Alkaline Phosphatase 45 (38-126) U/L Total Protein 6.6 (6.3-8.2) g/dL Albumin 3.5 (3.5-5.0) g/dL Lipase 110 (23-300) U/L Urine Color Urine Appearance (Clear) Urine pH (5.0-8.0) Ur Specific [place] (1.001-1.035) Urine Protein (Negative) Urine Glucose (UA) (Negative) Urine Ketones (Negative) Urine Blood (Negative) Urine Nitrite (Negative) Urine Bilirubin (Negative) Urine Urobilinogen (<2.0) mg/dL Ur Leukocyte Esterase (Negative) Disposition Clinical Impression: Abdominal pain Disposition: HOME SELF-CARE Condition: Good Instructions (If sedation given, give patient instructions): Abdominal Pain (ED) Is patient prescribed a controlled substance at d/c from ED?: No Referrals: Myranda Max MD [Primary Care Provider] - 1-2 days Tresa Prakash MD [STAFF PHYSICIAN] - 1-2 days
[2021-05-03 15:59] LABS: Basophils % (A) 0 %; Eosinophils % (A) 0 %; HCT 31.7 % (34.0-46.0); HGB 9.9 gm/dL (11.4-16.0); Hypochromasia Slight; Lymphocytes # (A) 1.3 k/uL (1.0-4.8); Lymphocytes % (A) 14 %; MCH 28.1 pg (25.0-35.0); MCHC 31.3 g/dL (31.0-37.0); MCV 89.7 fL (80.0-100.0); Mean Platelet Volume 7.3; Monocytes # (A) 0.4 k/uL (0-1.0); Monocytes % (A) 4 %; Neutrophils # (A) 7.9 k/uL (1.3-7.7); Neutrophils % (A) 81 %; Platelet Count 316 k/uL (150-450); RBC 3.54 m/uL (3.80-5.40); RDW 15.6 % (11.5-15.5); WBC 9.8 k/uL (3.8-10.6)
[2021-05-03 16:00] LABS: Appearance,Urine Clear (Clear); Bilirubin,Urine Negative (Negative); Blood,Urine Negative (Negative); Color,Urine Light Yellow; Glucose,Urine (UA) Negative (Negative); Ketones,Urine Negative (Negative); Leukocyte Esterase,Urine Negative (Negative); Nitrite,Urine Negative (Negative); PH, Urine 6.5 (5.0-8.0); Protein,Urine Negative (Negative); Specific Gravity,Urine 1.007 (1.001-1.035); Urobilinogen,Urine <2.0 mg/dL (<2.0)
[2021-05-03 16:09] LABS: ALT 12 U/L (4-34); AST 21 U/L (14-36); African American GFR (CKD) >90 (>60 ml/min/1.73 sqM); Albumin 3.5 g/dL (3.5-5.0); Alkaline Phosphatase 45 U/L (38-126); Anion Gap 7 mmol/L; Blood Urea Nitrogen 6 mg/dL (7-17); Calcium 8.8 mg/dL (8.4-10.2); Carbon Dioxide 19 mmol/L (22-30); Chloride 108 mmol/L (98-107); Glucose 68 mg/dL (74-99); Lipase 110 U/L (23-300); Non-African American GFR(CKD) >90 (>60 ml/min/1.73 sqM); Potassium 4.5 mmol/L (3.5-5.1); Sodium 134 mmol/L (137-145); Total Bilirubin 0.4 mg/dL (0.2-1.3); Total Protein 6.6 g/dL (6.3-8.2)
[2021-05-03 16:39] LABS: Glucose,Whole Blood 101 mg/dL (75-99)
--- NOTE | 2021-05-03 16:56 | XR ---
EXAMINATION TYPE: XR chest 2V DATE OF EXAM: 05/03/2021 4:48 PM COMPARISON:None TECHNIQUE: Frontal and lateral views of the chest. CLINICAL INDICATION:Female, 25 years old with history of evaluate for peritoneal air; FINDINGS: Lungs/Pleura: There is no evidence of pleural effusion, focal consolidation, or pneumothorax. Pulmonary vascularity: Unremarkable. Heart/mediastinum: Cardiomediastinal silhouette is unremarkable. Musculoskeletal:No acute osseous pathology. Other findings: No evidence for peritoneal air. IMPRESSION: 1, No evidence of peritoneal air. 2. No acute cardiopulmonary disease/process.
[2021-05-03] MEDS ORDERED: MAG HYDROX/AL HYDROX/SIMETH 30 ML, HYOSCYAMINE ELIXIR 10 ML, LIDOCAINE VISCOUS 2% 10 ML PO STA ×3 (17:10)
== END 2021-05-03 17:58 | disposition home or self-care (01) ==
LOC: EC 14:35
DX: R10.12 Left upper quadrant pain (principal); K21.9 Gastro-esophageal reflux disease without esophagitis; F17.290 Nicotine dependence, other tobacco product, uncomplicated; F12.90 Cannabis use, unspecified, uncomplicated; F32.A Depression, unspecified; F41.9 Anxiety disorder, unspecified; Z79.899 Other long term (current) drug therapy
CPT/HCPCS: 36415; 80053; 83690; 85025; 81003; 71046; 99284; 96374; J1200

== ENCOUNTER 2021-09-21 17:59 | Inpatient (IN) | payer OTHER ==
[2021-09-21 18:26] LABS: Glucose,Whole Blood 85 mg/dL (70-110)
[2021-09-21] MEDS: LACTATED RINGERS 1,000 ML IV SCH ×2 (21:19→21:20)
[2021-09-21] MEDS ORDERED: LACTATED RINGERS 1,000 ML IV SCH ×2 (21:30→23:45)
[2021-09-21] MEDS ORDERED: OXYTOCIN 30 UNITS/500 ML NS 30 UNIT in SALINE 1 500ML.BAG IV SCH (23:45)
[2021-09-21] MEDS ORDERED: TERBUTALINE 1 MG/ML VIAL SQ PRN (23:58)
[2021-09-21] MEDS ORDERED: CARBOPROST TROMETHAMINE 250 MCG/ML 1 ML AMP IM PRN (23:58)
[2021-09-21] MEDS ORDERED: OXYTOCIN 10 UNIT/ML 1 ML VIAL IM PRN (23:58)
[2021-09-21] MEDS ORDERED: METHYLERGONOVINE 0.2 MG/ML 1 ML AMP IM PRN (23:58)
[2021-09-21] MEDS ORDERED: LIDOCAINE 0.5% (PF) 5 MG/ML (50 ML SDV) SQ PRN (23:58)
[2021-09-22 00:12] LABS: Anisocytosis Slight; Basophils # (A) 0.1 k/uL (0-0.2); Basophils % (A) 1 %; Eosinophils # (A) 0.1 k/uL (0-0.7); Eosinophils % (A) 0 %; HCT 29.4 % (34.0-46.0); Hypochromasia Marked; Lymphocytes # (A) 1.8 k/uL (1.0-4.8); Lymphocytes % (A) 17 %; MCH 23.5 pg (25.0-35.0); MCHC 30.8 g/dL (31.0-37.0); MCV 76.4 fL (80.0-100.0); Mean Platelet Volume 8.5; Microcytosis Slight; Monocytes # (A) 0.4 k/uL (0-1.0); Monocytes % (A) 4 %; Neutrophils % (A) 77 %; Platelet Count 301 k/uL (150-450); Poikilocytosis Slight; RBC 3.84 m/uL (3.80-5.40); RDW 17.8 % (11.5-15.5); WBC 10.3 k/uL (3.8-10.6)
[2021-09-22] MEDS ORDERED: ROPIVACAINE 5MG/ML 20ML VIAL ONE (02:22)
[2021-09-22] MEDS ORDERED: SODIUM CHLORIDE 0.9% 100 ML BAG ONE (02:22)
[2021-09-22] MEDS ORDERED: fentaNYL (PF) 50 MCG/ML 5 ML AMP ONE (02:22)
[2021-09-22 08:15] LABS: Amphetamine Screen,Urine Not Detected (NotDetected); Barbiturate Screen,Urine Not Detected (NotDetected); Benzodiazepines Screen,Urine Not Detected (NotDetected); Cocaine Screen,Urine Not Detected (NotDetected); Methadone Screen, Urine Not Detected (NotDetected); Opiate Screen,Urine Not Detected (NotDetected); Oxycodone Screen, Urine Not Detected (NotDetected); Phencyclidine Screen,Urine Not Detected (NotDetected); Tricyclic Antidepressant,Urine Not Detected (NotDetected); Urn Cannabinoid Scrn Not Detected (NotDetected)
--- NOTE | 2021-09-22 09:41 | P.HPOB ---
History of Present Illness H&P Date: 09/22/21 Chief Complaint: IUP at 38-0/7 weeks, labor This is a 26-year-old 041 that presents to labor and delivery with complaints of regular painful contractions. Estimated due date of 10/05 based on 13 week ultrasound. Patient was seen last evening noted to be 3 cm, patient m tramaine a small amount changed to 4 cm and was observed overnight. Through the night patient was noted to be 5-6 and meters uncomfortable and did request epidural placement. This morning patient is noted to be 6 cm. Patient has been receiving care center proximally 14 weeks. She was diagnosed with gestational diabetes and subsequently placed on insulin. Patient reports her blood sugars to be well-controlled on 34 units daily at bedtime, managed by maternal medicine. Patient has a history of gastric bypass, patient in addition has a history of pulmonary embolism postoperatively no further treatment was recommended by maternal- medicine. She is a smoker, vaper. On bloodwork this patient has a blood type of A+, rubella status immune, B surface antigen negative, HIV negative, RPR is nonreactive, group beta strep was negative. Review of Systems Constitutional: Denies chills, Denies fatigue, Denies fever Ears, nose, mouth and throat: Denies headache Cardiovascular: Reports leg edema Respiratory: Denies dyspnea Gastrointestinal: Denies constipation, Denies diarrhea, Denies nausea, Denies vomiting Genitourinary: Reports Past Medical History Past Medical History: GERD/Reflux Additional Past Medical History / Comment(s): gastric bypass 2015, perforated ulcer in may, sepsis History of Any Multi-Drug Resistant Organisms: ESBL Date of last positivie culture/infection: 05/29/2018 MDRO Source:: ABDOMEN Past Surgical History: Bariatric Surgery, Hernia Repair, Orthopedic Surgery Additional Past Surgical History / Comment(s): feeding tube (removed in july 2018) , lt arm Past Anesthesia/Blood Transfusion Reactions: No Reported Reaction Past Psychological History: Anxiety, Depression, PTSD Smoking Status: Current every day smoker Past Alcohol Use History: None Reported, Abuse, Daily, Heavy Past Drug Use History: Marijuana, Prescription Drug Abuse - Past Family History Mother Family Medical History: No Reported History Medications and Allergies Home Medications Medication Instructions Recorded Confirmed Type Sertraline [Zoloft] 50 mg PO DAILY 01/09/21 05/03/21 History Insulin Regular, Human [Novolin R] 34 unit SQ DAILY 09/21/21 09/21/21 History Vit No.179/Iron/Folic 1 tab PO DAILY 09/21/21 09/21/21 History [ Tablet] Allergies Allergy/AdvReac Type Severity Reaction Status Date / Time No Known Allergies Allergy Verified 09/21/21 18:11 Exam Osteopathic Statement: *. No significant issues noted on an osteopathic structural exam other than those noted in the History and Physical/Consult. 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 Breathing is nonlabored, heart has regular rhythm, abdomen is gravid, on cervical exam she is 6 cm 80% effaced -2 station large bulging bag of rivas appreciated. Amniotomy was performed and clear fluid was obtained. heart tones noted to be category 1 and she is delphine irregularly. Results Result Diagrams: 09/21/21 19:57 Abnormal Lab Results - Last 24 Hours (Table) 09/21/21 Range/Units 19:57 Hgb 9.0 L (11.4-16.0) gm/dL Hct 29.4 L (34.0-46.0) % MCV 76.4 L (80.0-100.0) fL MCH 23.5 L (25.0-35.0) pg MCHC 30.8 L (31.0-37.0) g/dL RDW 17.8 H (11.5-15.5) % Neutrophils # 8.0 H (1.3-7.7) k/uL Assessment and Plan (1) Term Current Visit: Yes Status: Acute Code(s): Z34.90 - ENCNTR FOR SUPRVSN OF NORMAL , UNSP, UNSP TRIMESTER SNOMED Code(s): 78563196 (2) Active labor Current Visit: Yes Status: Acute Code(s): CTB5919 - SNOMED Code(s): 297452973 (3) GDM, class A2 Current Visit: Yes Status: Acute Code(s): O24.419 - GESTATIONAL DIABETES MELLITUS IN , UNSP CONTROL SNOMED Code(s): 25173099 (4) Smoker Current Visit: Yes Status: Acute Code(s): F17.200 - NICOTINE DEPENDENCE, UNSPECIFIED, UNCOMPLICATED SNOMED Code(s): 12973170 Plan: 26-year-old 6 para 1041 at 38 weeks of gestation that presented last evening with complaints of regular painful contractions. Patient was taken to be in early labor and made significant cervical change through the evening. Patient currently has an epidural in place. Amniotomy performed clear fluid was obtained. Anticipate spontaneous vaginal delivery.
[2021-09-22] MEDS ORDERED: SIMETHICONE 80 MG CHEWABLE PO PRN (10:37)
[2021-09-22] MEDS ORDERED: HYDROCORTISONE 2.5% RECTAL CREAM 30 GM TUBE RECTAL PRN (10:37)
[2021-09-22] MEDS ORDERED: diphenhydrAMINE 50 MG/ML 1 ML VIAL IVP PRN ×2 (10:37)
[2021-09-22] MEDS ORDERED: ZOLPIDEM 5 MG TAB PO PRN (10:37)
[2021-09-22] MEDS ORDERED: diphenhydrAMINE 50 MG CAP PO PRN (10:37)
[2021-09-22] MEDS ORDERED: diphenhydrAMINE 25 MG CAP PO PRN (10:37)
[2021-09-22] MEDS ORDERED: BENZOCAINE/MENTHOL SPRAY 1 GM/SPRAY AEROSOL TOPICAL PRN (10:37)
[2021-09-22] MEDS ORDERED: LANOLIN CREAM 5 GM TUBE TOPICAL PRN (10:37)
--- NOTE | 2021-09-22 10:40 | P.PROBDLV ---
Vaginal Delivery Note - . Vaginal Delivery Note: 26-year-old 6 para 1041 at 38-0/7 weeks that presented to labor and delivery last evening with complaints of regular painful contractions. Patient was noted have cervical change through the night becoming uncomfortable and did receive an epidural placement. Patient was noted to be 5-6 cm this morning with a bulging bag of water. Amniotomy was performed and clear fluid was obtained. Patient progressed through labor eventually becoming complete began pushing and with excellent maternal effort had descent of the head to a presentation. With additional pushing patient had delivery of the anterior/posterior shoulder. The body was delivered and placed on the maternal abdomen. Spontaneous cry was noted at . After two-minute delayed the umbilical cord was doubly clamped and cut and the placenta was delivered spontaneously intact with three-vessel cord being noted. No vaginal lacerations were appreciated. The uterus noted to be firm and below the umbilicus. Estimated blood loss 100 mL. Patient and infant tolerated delivery well and are resting comfortably. All counts were noted be correct 2 at the in the delivery.
[2021-09-22] MEDS ORDERED: OXYTOCIN 30 UNITS/500 ML NS 30 UNIT in SALINE 1 500ML.BAG IV SCH (10:45)
[2021-09-22 12:05] LABS: Glucose,Whole Blood 92 mg/dL (70-110)
[2021-09-22] MEDS: IBUPROFEN 600 MG TAB PO SCH ×2 (17:38→22:53)
[2021-09-22] MEDS: SENNOSIDES-DOCUSATE SODIUM 1 EACH TAB PO SCH (20:11)
[2021-09-22] MEDS: ACETAMINOPHEN TAB 325 MG TAB PO PRN (20:11)
[2021-09-22 20:56] LABS: Glucose,Whole Blood 105 mg/dL (70-110)
[2021-09-23] MEDS: ACETAMINOPHEN TAB 325 MG TAB PO PRN ×2 (02:01→08:06)
[2021-09-23] MEDS: IBUPROFEN 600 MG TAB PO SCH ×2 (05:08→12:27)
[2021-09-23 08:01] LABS: Glucose,Whole Blood 84 mg/dL (70-110)
[2021-09-23] MEDS: SENNOSIDES-DOCUSATE SODIUM 1 EACH TAB PO SCH (08:06)
[2021-09-23 08:15] LABS: Anisocytosis Slight; Basophils % (A) 1 %; Eosinophils % (A) 1 %; HCT 26.1 % (34.0-46.0); Hypochromasia Marked; Lymphocytes # (A) 1.5 k/uL (1.0-4.8); Lymphocytes % (A) 24 %; MCH 23.3 pg (25.0-35.0); MCHC 30.6 g/dL (31.0-37.0); Mean Platelet Volume 9.5; Microcytosis Slight; Monocytes # (A) 0.3 k/uL (0-1.0); Monocytes % (A) 5 %; Neutrophils # (A) 4.2 k/uL (1.3-7.7); Neutrophils % (A) 68 %; Platelet Count 243 k/uL (150-450); Poikilocytosis Slight; RBC 3.43 m/uL (3.80-5.40); RDW 17.8 % (11.5-15.5); WBC 6.2 k/uL (3.8-10.6)
[2021-09-23 08:49] VITALS: BP 114/68; PULSE 58; RESP 14; TEMP 98.3
[2021-09-23] MEDS ORDERED: PRENATAL VIT-IRON-FOLIC ACID 1 EACH TABLET PO SCH (09:00)
[2021-09-23] MEDS ORDERED: SERTRALINE 50 MG TAB PO SCH (09:00)
--- NOTE | 2021-09-23 10:58 | P.DS ---
Providers Date of admission: 09/21/21 20:59 Expected date of discharge: 09/23/21 Attending physician: Daniel De La Rosa Primary care physician: Stated None - Discharge Diagnosis(es) (1) Term Current Visit: Yes Status: Acute (2) Active labor Current Visit: Yes Status: Acute (3) GDM, class A2 Current Visit: Yes Status: Acute (4) Smoker Current Visit: Yes Status: Acute Hospital Course: This is a 26-year-old 6 para 2041 that presented to labor and delivery yesterday 09/21 with complaints of regular painful contractions. Patient been r eceiving routine care which has been completed by diagnosis of gestational diabetes, patient subsequently saw maternal- medicine was placed on insulin. Patient states her blood sugars have been well controlled. For full details on this patient please see the dictated history and physical. Patient was observed overnight, patient made change through the night eventually getting an epidural for discomfort. Patient was noted to be 5-6 cm in the morning with a bulging bag of water. Amniotomy was performed and clear fluid was obtained. Patient progressed to complete began pushing and had a normal spontaneous vaginal delivery of a viable male infant delivered at 1029, weight of 5 lbs. 15 oz., Apgars of 9 and 9 at one and 5 minutes respectively. Patient's course has been uneventful. On this day #1 she is ambulating and voiding without difficulty, lochia is minimal. She is tolerating a regular diet without nausea or vomiting. She states her pain is well-controlled and she would like discharge home at 24 hours if possible. Patient Condition at Discharge: Good Plan - Discharge Summary New Discharge Prescriptions: No Action Sertraline [Zoloft] 50 mg PO DAILY Vit No.179/Iron/Folic [ Tablet] 1 tab PO DAILY Insulin Regular, Human [Novolin R] 34 unit SQ DAILY Discharge Medication List Sertraline [Zoloft] 50 mg PO DAILY 01/09/21 [History] Insulin Regular, Human [Novolin R] 34 unit SQ DAILY 09/21/21 [History] Vit No.179/Iron/Folic [ Tablet] 1 tab PO DAILY 09/21/21 [History] Follow up Appointment(s)/Referral(s): Daniel De La Rosa MD [STAFF PHYSICIAN] - 6 Weeks Patient Instructions/Handouts: Vaginal Delivery (DC), Vaginal Delivery (GEN) Discharge Disposition: HOME SELF-CARE
== END 2021-09-23 15:10 | disposition home or self-care (01) | DRG 807 ==
LOC: FBPOP 17:59 → 4FBP 20:59 → OBSVTOIN 23:41
PROVIDERS: ADMIT Obstetrics & Gynecology Obstetrics; ATTEND Obstetrics & Gynecology
PROC: 10E0XZZ Delivery of Products of Conception, External Approach (ICD-10-PCS; principal; 2021-09-22)
PROC: 10907ZC Drainage of Amniotic Fluid, Therapeutic from Products of Conception, Via Natural or Artificial Opening (ICD-10-PCS; 2021-09-22)
PROC: 4A0HXCZ Measurement of Products of Conception, Cardiac Rate, External Approach (ICD-10-PCS; 2021-09-22)
DX: O24.424 Gestational diabetes mellitus in childbirth, insulin controlled (principal); Z37.0 Single live birth; F32.A Depression, unspecified; F43.10 Post-traumatic stress disorder, unspecified; F17.290 Nicotine dependence, other tobacco product, uncomplicated; K21.9 Gastro-esophageal reflux disease without esophagitis; O99.62 Diseases of the digestive system complicating childbirth; O99.334 Smoking (tobacco) complicating childbirth; O99.344 Other mental disorders complicating childbirth; O99.844 Bariatric surgery status complicating childbirth; Z3A.38 38 weeks gestation of pregnancy; Z79.899 Other long term (current) drug therapy; Z86.711 Personal history of pulmonary embolism; Z87.11 Personal history of peptic ulcer disease; Z87.19 Personal history of other diseases of the digestive system
CPT/HCPCS: 36415; 59025; 80306; 83036; 85025; 86850; 86900; 86901; 96360; 99214

== ENCOUNTER 2022-04-20 09:39 | Emergency (ER) | payer OTHER ==
[2022-04-20 10:00] VITALS: RESP 18; TEMP 98
[2022-04-20] MEDS ORDERED: KETOROLAC 15 MG/ML 1 ML VIAL IVP STA (10:13)
[2022-04-20] MEDS ORDERED: SODIUM CHLORIDE 0.9% 1,000 ML IV STA (10:13)
[2022-04-20] MEDS ORDERED: ONDANSETRON 4 MG/2 ML VIAL IVP STA (10:13)
[2022-04-20 10:43] LABS: Anisocytosis Slight; Basophils # (A) 0.1 k/uL (0-0.2); Basophils % (A) 1 %; Eosinophils # (A) 0.1 k/uL (0-0.7); Eosinophils % (A) 2 %; HCT 36.7 % (34.0-46.0); HGB 11.5 gm/dL (11.4-16.0); Lymphocytes # (A) 1.6 k/uL (1.0-4.8); Lymphocytes % (A) 32 %; MCHC 31.2 g/dL (31.0-37.0); MCV 80.1 fL (80.0-100.0); Mean Platelet Volume 7.7; Microcytosis Slight; Monocytes # (A) 0.2 k/uL (0-1.0); Monocytes % (A) 5 %; Neutrophils # (A) 2.9 k/uL (1.3-7.7); Neutrophils % (A) 58 %; Platelet Count 247 k/uL (150-450); RBC 4.59 m/uL (3.80-5.40); RDW 18.1 % (11.5-15.5)
--- NOTE | 2022-04-20 10:56 | ED ---
Abdominal Pain HPI - General Chief Complaint: Abdominal Pain Stated Complaint: Pelvic Pain Time Seen by Provider: 04/20/22 10:00 Source: patient, RN notes reviewed Mode of arrival: ambulatory Limitations: no limitations - History of Present Illness Initial Comments: 26-year-old female presents emergency Department with chief complaint of abdominal pain. Patient states started this morning states his right quadrant abdominal pain. Patient has had multiple prior abdominal surgeries including gastric bypass, peptic ulcer repair for perforation, prior PEG tubes. Patient states she had no change in bowel habits states that she did have slight nausea without vomiting no reported fever. Patient states she's had some issues with her gallbladder past states feels possible different. - Related Data Home Medications Medication Instructions Recorded Confirmed Sertraline [Zoloft] 50 mg PO DAILY 01/09/21 05/03/21 Insulin Regular, Human [Novolin R] 34 unit SQ DAILY 09/21/21 09/21/21 Vit No.179/Iron/Folic 1 tab PO DAILY 09/21/21 09/21/21 [ Tablet] Previous Rx's Medication Instructions Recorded Cephalexin [Keflex] 500 mg PO Q8HR #21 cap 04/20/22 Allergies Allergy/AdvReac Type Severity Reaction Status Date / Time No Known Allergies Allergy Verified 04/20/22 09:59 Review of Systems ROS Statement: Those systems with pertinent positive or pertinent negative responses have been documented in the HPI. ROS Other: All systems not noted in ROS Statement are negative. Past Medical History Past Medical History: GERD/Reflux Additional Past Medical History / Comment(s): gastric bypass 2015, perforated ulcer in may, sepsis History of Any Multi-Drug Resistant Organisms: ESBL Date of last positivie culture/infection: 05/29/2018 MDRO Source:: ABDOMEN Past Surgical History: Bariatric Surgery, Hernia Repair, Orthopedic Surgery Additional Past Surgical History / Comment(s): feeding tube (removed in july 2018) , lt arm Past Anesthesia/Blood Transfusion Reactions: No Reported Reaction Past Psychological History: Anxiety, Depression, PTSD Smoking Status: Current every day smoker Past Alcohol Use History: None Reported, Abuse, Daily, Heavy Past Drug Use History: Marijuana, Prescription Drug Abuse - Past Family History Mother Family Medical History: No Reported History General Exam Limitations: no limitations General appearance: alert, in no apparent distress Head exam: Present: atraumatic, normocephalic, normal inspection Eye exam: Present: normal appearance, PERRL, EOMI. Absent: scleral icterus, conjunctival injection, periorbital swelling Neck exam: Present: normal inspection, full ROM. Absent: tenderness, meningismus, lymphadenopathy Respiratory exam: Present: normal lung sounds bilaterally. Absent: respiratory distress, wheezes, rales, rhonchi, stridor Cardiovascular Exam: Present: regular rate, normal rhythm, normal heart sounds. Absent: systolic murmur, diastolic murmur, rubs, gallop, clicks GI/Abdominal exam: Present: soft, tenderness, normal bowel sounds. Absent: distended, guarding, rebound, rigid Back exam: Absent: CVA tenderness (R), CVA tenderness (L) Course Vital Signs 04/20/22 09:57 Temperature 98 F Pulse Rate 68 Respiratory 18 Rate Blood Pressure 99/65 O2 Sat by Pulse 100 Oximetry Medical Decision Making - Medical Decision Making Was pt. sent in by a medical professional or institution (, PA, RADIO AERIAL INSTALLER, urgent care, hospital, or correction...) When possible be specific @ -No Did you speak to anyone other than the patient for history (EMS, parent, family, police, friend...)? What history was obtained from this source @ -No Did you review nursing and triage notes (agree or disagree)? Why? @ -I reviewed and agree with nursing and triage notes Were old charts reviewed (outside hosp., previous admission, EMS record, old EKG, old radiological studies, urgent care reports/EKG's, correction records)? Report findings @ -No old charts were reviewed Differential Diagnosis (chest pain, altered mental status, abdominal pain women, abdominal pain men, vaginal bleeding, weakness, fever, dyspnea, syncope, headache, dizziness, GI bleed, back pain, seizure, CVA, palpatations, mental health)? @ -Cholelithiasis, cholecystitis, kidney stone, UTI, pyelonephritis, this list is not all inclusive. EKG interpreted by me (3pts min.). @ -[none X-rays interpreted by me (1pt min.). @ -None done CT interpreted by me (1pt min.). @ -None done U/S interpreted by me (1pt. min.). @ -Ultrasound shows evidence of mild swelling of the right kidney, GALLBLADDER NO ACUTE PROCESS What testing was considered but not performed or refused? (CT, X-rays, U/S, labs)? Why? @ -CT was considered outpatient had multiple CTs in the past, pain is improved after Toradol and felt this may related to kidney stone versus infection. Wilmar kennedy agrees to plan. What meds were considered but not given or refused? Why? @ -None Did you discuss the management of the patient with other professionals (professionals i.e. , PA, RADIO AERIAL INSTALLER, lab, RT, psych nurse, social media sr strategy manager, infant room teacher, teacher, youth officer, case aide)? Give summary @ -No Was smoking cessation discussed for >3mins.? @ -No Was critical care preformed (if so, how long)? @ -No Were there social determinants of health that impacted care today? How? (Homelessness, low income, unemployed, alcoholism, drug addiction, transportation, low edu. Level, literacy, decrease access to med. care, half-way, rehab)? @ -No Was there de-escalation of care discussed even if they declined (Discuss DNR or withdrawal of care, Hospice)? DNR status @ -No What co-morbidities impacted this encounter? (DM, HTN, Smoking, COPD, CAD, Cancer, CVA, ARF, Chemo, Hep., AIDS, mental health diagnosis, sleep apnea, morbid obesity)? @ -None Was patient admitted / discharged? Hospital course, mention meds given and route, prescriptions, significant lab abnormalities, going to OR and other pertinent info. @ -Discharge patient ultrasound shows mild right renal pelvis swelling, this may be consistent with kidney stone as pain is improved patient. Patient does have some bacteria in her urine will be given antibiotics, pain control return parameters were discussed. Undiagnosed new problem with uncertain prognosis? @ -No Drug Therapy requiring intensive monitoring for toxicity (Heparin, Nitro, Insulin, Cardizem)? @ -No Were any procedures done? @ -No Diagnosis/symptom? @ -flank pain Acute, or Chronic, or Acute on Chronic? @ -acute Uncomplicated (without systemic symptoms) or Complicated (systemic symptoms)? @ -uncomplicated Side effects of treatment? @ -No Exacerbation, Progression, or Severe Exacerbation? @ -No Poses a threat to life or bodily function? How? (Chest pain, [place], [place], pneumonia, PE, COPD, DKA, ARF, appy, cholecystitis, CVA, Diverticulitis, Homicidal, Suic idal, threat to staff... and all critical care pts) @ -No - Lab Data Result diagrams: 04/20/22 10:18 04/20/22 10:18 Lab Results 04/20/22 04/20/22 04/20/22 Range/Units 10:18 10:18 10:18 WBC 5.0 (3.8-10.6) k/uL RBC 4.59 (3.80-5.40) m/uL Hgb 11.5 (11.4-16.0) gm/dL Hct 36.7 (34.0-46.0) % MCV 80.1 (80.0-100.0) fL MCH 25.0 (25.0-35.0) pg MCHC 31.2 (31.0-37.0) g/dL RDW 18.1 H (11.5-15.5) % Plt Count 247 (150-450) k/uL MPV 7.7 Neutrophils % 58 % Lymphocytes % 32 % Monocytes % 5 % Eosinophils % 2 % Basophils % 1 % Neutrophils # 2.9 (1.3-7.7) k/uL Lymphocytes # 1.6 (1.0-4.8) k/uL Monocytes # 0.2 (0-1.0) k/uL Eosinophils # 0.1 (0-0.7) k/uL Basophils # 0.1 (0-0.2) k/uL Anisocytosis Slight Microcytosis Slight Sodium (137-145) mmol/L Potassium (3.5-5.1) mmol/L Chloride (98-107) mmol/L Carbon Dioxide (22-30) mmol/L Anion Gap mmol/L BUN (7-17) mg/dL Creatinine (0.52-1.04) mg/dL Est GFR (CKD-EPI)AfAm (>60 ml/min/1.73 sqM) Est GFR (CKD-EPI)NonAf (>60 ml/min/1.73 sqM) Glucose (74-99) mg/dL Plasma Lactic Acid Tae (0.7-2.0) mmol/L Calcium (8.4-10.2) mg/dL Total Bilirubin (0.2-1.3) mg/dL AST (14-36) U/L ALT (4-34) U/L Alkaline Phosphatase (38-126) U/L Total Protein (6.3-8.2) g/dL Albumin (3.5-5.0) g/dL Amylase (30-110) U/L Lipase (23-300) U/L Urine Color Yellow Urine Appearance Cloudy H (Clear) Urine pH 6.0 (5.0-8.0) Ur Specific [place] 1.016 (1.001-1.035) Urine Protein 1+ H (Negative) Urine Glucose (UA) Negative (Negative) Urine Ketones Negative (Negative) Urine Blood Negative (Negative) Urine Nitrite Negative (Negative) Urine Bilirubin Negative (Negative) Urine Urobilinogen <2.0 (<2.0) mg/dL Ur Leukocyte Esterase Small H (Negative) Urine RBC <1 (0-5) /hpf Urine WBC 5 (0-5) /hpf Ur Squamous Epith Cells 11 H (0-4) /hpf Urine Bacteria Few H (None) /hpf Urine Mucus Few H (None) /hpf Urine HCG, Qual Not Detected (Not Detectd) 04/20/22 04/20/22 Range/Units 10:18 10:18 WBC (3.8-10.6) k/uL RBC (3.80-5.40) m/uL Hgb (11.4-16.0) gm/dL Hct (34.0-46.0) % MCV (80.0-100.0) fL MCH (25.0-35.0) pg MCHC (31.0-37.0) g/dL RDW (11.5-15.5) % Plt Count (150-450) k/uL MPV Neutrophils % % Lymphocytes % % Monocytes % % Eosinophils % % Basophils % % Neutrophils # (1.3-7.7) k/uL Lymphocytes # (1.0-4.8) k/uL Monocytes # (0-1.0) k/uL Eosinophils # (0-0.7) k/uL Basophils # (0-0.2) k/uL Anisocytosis Microcytosis Sodium 139 (137-145) mmol/L Potassium 4.0 (3.5-5.1) mmol/L Chloride 107 (98-107) mmol/L Carbon Dioxide 23 (22-30) mmol/L Anion Gap 9 mmol/L BUN 8 (7-17) mg/dL Creatinine 0.69 (0.52-1.04) mg/dL Est GFR (CKD-EPI)AfAm >90 (>60 ml/min/1.73 sqM) Est GFR (CKD-EPI)NonAf >90 (>60 ml/min/1.73 sqM) Glucose 86 (74-99) mg/dL Plasma Lactic Acid Tae 0.9 (0.7-2.0) mmol/L Calcium 9.0 (8.4-10.2) mg/dL Total Bilirubin 0.5 (0.2-1.3) mg/dL AST 20 (14-36) U/L ALT 12 (4-34) U/L Alkaline Phosphatase 66 (38-126) U/L Total Protein 7.7 (6.3-8.2) g/dL Albumin 4.6 (3.5-5.0) g/dL Amylase 69 (30-110) U/L Lipase 101 (23-300) U/L Urine Color Urine Appearance (Clear) Urine pH (5.0-8.0) Ur Specific [place] (1.001-1.035) Urine Protein (Negative) Urine Glucose (UA) (Negative) Urine Ketones (Negative) Urine Blood (Negative) Urine Nitrite (Negative) Urine Bilirubin (Negative) Urine Urobilinogen (<2.0) mg/dL Ur Leukocyte Esterase (Negative) Urine RBC (0-5) /hpf Urine WBC (0-5) /hpf Ur Squamous Epith Cells (0-4) /hpf Urine Bacteria (None) /hpf Urine Mucus (None) /hpf Urine HCG, Qual (Not Detectd) Disposition Clinical Impression: Right flank pain, UTI (urinary tract infection) Disposition: HOME SELF-CARE Condition: Stable Instructions (If sedation given, give patient instructions): Kidney Stones (ED) Additional Instructions: Please return to the Emergency Department if symptoms worsen or any other concerns. Prescriptions: Cephalexin [Keflex] 500 mg PO Q8HR #21 cap Is patient prescribed a controlled substance at d/c from ED?: No Referrals: Amanda Cox MD [Primary Care Provider] - 1-2 days Time of Disposition: 12:32
[2022-04-20 10:57] LABS: ALT 12 U/L (4-34); AST 20 U/L (14-36); African American GFR (CKD) >90 (>60 ml/min/1.73 sqM); Albumin 4.6 g/dL (3.5-5.0); Alkaline Phosphatase 66 U/L (38-126); Amylase 69 U/L (30-110); Anion Gap 9 mmol/L; Blood Urea Nitrogen 8 mg/dL (7-17); Carbon Dioxide 23 mmol/L (22-30); Chloride 107 mmol/L (98-107); Glucose 86 mg/dL (74-99); Lipase 101 U/L (23-300); Non-African American GFR(CKD) >90 (>60 ml/min/1.73 sqM); Sodium 139 mmol/L (137-145); Total Bilirubin 0.5 mg/dL (0.2-1.3); Total Protein 7.7 g/dL (6.3-8.2)
[2022-04-20 11:20] LABS: Appearance,Urine Cloudy (Clear); Bacteria,Urine Few /hpf; Bilirubin,Urine Negative (Negative); Blood,Urine Negative (Negative); Color,Urine Yellow; Glucose,Urine (UA) Negative (Negative); Ketones,Urine Negative (Negative); Leukocyte Esterase,Urine Small (Negative); Mucus,Urine Few /hpf; Nitrite,Urine Negative (Negative); Protein,Urine 1+ (Negative); RBC,Urine <1 /hpf (0-5); Specific Gravity,Urine 1.016 (1.001-1.035); Squamous Epithelial Cell,Urine 11 /hpf (0-4); Urobilinogen,Urine <2.0 mg/dL (<2.0); WBC,Urine 5 /hpf (0-5)
--- NOTE | 2022-04-20 12:02 | US ---
EXAMINATION TYPE: US gallbladder DATE OF EXAM: 04/20/2022 COMPARISON: CT 2019 CLINICAL HISTORY: pain. Pain. Hx gastric bypass in 2016, perforated ulcer repair in 2019. TECHNIQUE: Multiple sonographic images of the right upper quadrant are obtained. FINDINGS: EXAM MEASUREMENTS: Liver Length: 16.4 cm Gallbladder Wall: 0.17 cm CBD: 0.49 cm Right Kidney: 13.0 x 6.6 x 4.2 cm OFFICE EQUIPMENT MECHANIC NOTES: Limited due to gas. Pancreas: No abnormalities seen. Liver: Appears wnl Gallbladder: Measures upper limits at 9.6 cm in length. Evidence for sonographic Reid's sign: No CBD: Portions seen appear wnl Right Kidney: Slightly enlarged. Appearance of possible duplicated collecting system- ?question prom inent renal pelvis medially. IMPRESSION: Normal gallbladder without distention, wall thickening or gallstones or biliary ductal dilatation. No significant abnormality seen.
--- NOTE | 2022-04-20 12:05 | XR ---
KUB. HISTORY: Abdominal pain. COMPARISON: None. TECHNIQUE: 2 upright views of the abdomen were obtained. FINDINGS: The lung bases are clear. There is no free intraperitoneal air beneath the diaphragm. The bowel gas pattern is nonspecific and there is no evidence of obstruction. No suspicious abdominal or pelvic calcifications are seen. The osseous structures are intact. IMPRESSION: Nonspecific abdomen without evidence of free air or obstruction.
[2022-04-20] MEDS ORDERED: ACET/COD 300 MG/30 MG STARTER PACK 6 TAB BTL PO STA (12:24)
[2022-04-20 12:52] VITALS: BP 132/78; PULSE 90
== END 2022-04-20 12:52 | disposition home or self-care (01) ==
LOC: EC 09:39 → SUPCPDRO 09:39 → EC 12:52
DX: N39.0 Urinary tract infection, site not specified (principal); R10.9 Unspecified abdominal pain; F41.9 Anxiety disorder, unspecified; F32.A Depression, unspecified; F17.200 Nicotine dependence, unspecified, uncomplicated; F12.90 Cannabis use, unspecified, uncomplicated
CPT/HCPCS: 36415; 80053; 82150; 83605; 83690; 85025; 81001; 81025; 74018; 76705; 99284; 96374; 96375; 96361 ×2; J2405; J1885

== ENCOUNTER 2022-04-23 17:26 | Emergency (ER) | payer OTHER ==
[2022-04-23 17:36] VITALS: RESP 18; TEMP 98.3
[2022-04-23] MEDS ORDERED: KETOROLAC 15 MG/ML 1 ML VIAL IVP STA (18:36)
[2022-04-23 18:42] LABS: Anisocytosis Slight; Basophils % (A) 1 %; Eosinophils % (A) 0 %; HGB 11.9 gm/dL (11.4-16.0); Lymphocytes # (A) 1.8 k/uL (1.0-4.8); Lymphocytes % (A) 30 %; MCH 25.5 pg (25.0-35.0); MCHC 31.4 g/dL (31.0-37.0); MCV 81.2 fL (80.0-100.0); Mean Platelet Volume 7.9; Microcytosis Slight; Monocytes # (A) 0.2 k/uL (0-1.0); Monocytes % (A) 4 %; Neutrophils # (A) 3.6 k/uL (1.3-7.7); Neutrophils % (A) 62 %; Platelet Count 255 k/uL (150-450); RBC 4.68 m/uL (3.80-5.40); RDW 18.7 % (11.5-15.5); WBC 5.8 k/uL (3.8-10.6)
[2022-04-23 18:52] LABS: ALT 14 U/L (4-34); AST 31 U/L (14-36); African American GFR (CKD) >90 (>60 ml/min/1.73 sqM); Albumin 4.3 g/dL (3.5-5.0); Alkaline Phosphatase 70 U/L (38-126); Amylase 64 U/L (30-110); Anion Gap 8 mmol/L; Blood Urea Nitrogen 10 mg/dL (7-17); Calcium 8.8 mg/dL (8.4-10.2); Carbon Dioxide 23 mmol/L (22-30); Chloride 108 mmol/L (98-107); Glucose 83 mg/dL (74-99); Lipase 70 U/L (23-300); Non-African American GFR(CKD) >90 (>60 ml/min/1.73 sqM); Potassium 4.6 mmol/L (3.5-5.1); Sodium 139 mmol/L (137-145); Total Bilirubin 0.4 mg/dL (0.2-1.3); Total Protein 7.3 g/dL (6.3-8.2)
[2022-04-23 19:15] LABS: Appearance,Urine Clear (Clear); Bilirubin,Urine Negative (Negative); Blood,Urine Negative (Negative); Color,Urine Light Yellow; Glucose,Urine (UA) Negative (Negative); Ketones,Urine 1+ (Negative); Leukocyte Esterase,Urine Negative (Negative); Nitrite,Urine Negative (Negative); PH, Urine 7.5 (5.0-8.0); Protein,Urine Negative (Negative); Specific Gravity,Urine 1.014 (1.001-1.035); Urobilinogen,Urine <2.0 mg/dL (<2.0)
--- NOTE | 2022-04-23 20:22 | XR ---
EXAMINATION TYPE: XR KUB DATE OF EXAM: 04/23/2022 7:45 PM INDICATION: Patient age:Female; 26 years old; Reason for study: abdominal pain; COMPARISON: None. TECHNIQUE: One radiographic view of the abdomen was obtained. FINDINGS: The bowel gas pattern is nonspecific without dilated loops of small or large bowel. There i s no evidence for organomegaly or pneumoperitoneum. The osseous structures are intact. No abnormal calcifications are present. Fecal material and gas are demonstrated throughout the colon and rectum. IMPRESSION: Nonspecific bowel gas pattern without radiographic evidence for acute process.
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
[2022-04-23 21:07] VITALS: BP 114/68; PULSE 80
--- NOTE | 2022-04-23 21:24 | US ---
EXAMINATION TYPE: US abdomen APPY DATE OF EXAM: 04/23/2022 COMPARISON: NONE CLINICAL HISTORY: RLQ pain. RLQ pain TECHNIQUE: Multiple sonographic images of the right lower quadrant were obtained with graded compress ion. FINDINGS: APPENDIX . Is the appendix seen in its entirety from the proximal cecum to distal end: No Is there inflammatory changes or free fluid present: No CRIME PREVENTION POLICE OFFICER NOTES: Appendix not visualized. No obvious pathology noted Focused ultrasound in the right lower quadrant over the area of concern with graded compression in th e right lower quadrant was performed. No tubular, noncompressible dilated structures identified in th e right lower quadrant. No free fluid. IMPRESSION: Nonvisualization of the appendix in the right lower quadrant. This does not exclude diagnosis of acu te appendicitis.
--- NOTE | 2022-04-23 21:25 | US ---
EXAMINATION TYPE: US transvaginal DATE OF EXAM: 04/23/2022 COMPARISON: 05/24/18 CLINICAL HISTORY: pelvic pain. Pelvic pain TECHNIQUE: Transvaginal (TV). Date of LMP: 2 weeks ago EXAM MEASUREMENTS: Uterus: 8.2 x 5.5 x 4.2 cm Endometrial Stripe: 1.7 cm Right Ovary: 2.7 x 2.7 x 1.6 cm Left Ovary: 3.5 x 2.4 x 1.8 cm 1. Uterus: Anteverted wnl 2. Endometrium: upper limits of normal 3. Right Ovary: wnl 4. Left Ovary: Dominant follicle visualized measuring 1.7 x 1.4 x 0.9cm. Isoechoic area visualized m easuring 2.1 x 1.7 x 0.8cm Spectral, color and waveform doppler imaging shows good arterial and venous flow within the ovaries ; there is no evidence for ovarian torsion. 5. Bilateral Adnexa: wnl 6. Posterior cul-de-sac: small amount of free fluid IMPRESSION: 1. No evidence for acute process. 2. Endometrium within normal limits for thickness. 3. Appropriate arterial and spectral venous waveforms to the ovaries.
--- NOTE | 2022-04-23 22:48 | CT ---
EXAMINATION TYPE: CT abdomen pelvis w con DATE OF EXAM: 04/23/2022 COMPARISON: 09/28/2018 HISTORY: RLQ pain CT DLP: 674.4 mGycm Automated exposure control for dose reduction was used. CONTRAST: Performed with IV Contrast, patient injected with 100ml mL of Isovue 300. Images obtained from the diaphragm to the floor the pelvis with IV contrast. Lung bases are clear. No pleural effusion. Heart size is normal. No pericardial effusion. Liver splee n appear intact. There numerous surgical clips at the stomach. No pancreatic mass. Gallbladder appear s normal. The bile ducts are not dilated. There is no adrenal mass. Kidneys show satisfactory contrast opacification. No hydronephrosis. Ureter s are not dilated. No retroperitoneal adenopathy. Bladder distends smoothly. Uterus is anteverted. No free fluid in the pelvis. No evidence of pelvic mass. There is no mesenteric edema. No ascites or free air. No sign of bowel obstruction. A short segment o f the appendix is seen and appears normal. No sign of appendicitis. The lumbar vertebrae have normal alignment. Posterior elements are intact. Bony pelvis is intact. The hip joints are intact. Sacroiliac joints are intact. IMPRESSION: Previous surgery. No acute abnormality of the abdomen and pelvis. Limited visualization of the append ix which appears normal. No adverse change compared to the old exam.
[2022-04-23] MEDS ORDERED: DICYCLOMINE 10 MG/ML 2 ML AMP IM STA (22:57)
== END 2022-04-23 23:19 | disposition home or self-care (01) ==
LOC: EC 17:26
DX: R10.31 Right lower quadrant pain (principal); F41.9 Anxiety disorder, unspecified; F32.A Depression, unspecified; F17.200 Nicotine dependence, unspecified, uncomplicated; F12.90 Cannabis use, unspecified, uncomplicated
CPT/HCPCS: 36415; 80053; 82150; 83605; 83690; 85025; 81003; 81025; 74018; 93975; 76705; 76830; 70486; 74177; 99285; 96374; 96372; J0500; J1885; Q9967

== ENCOUNTER 2022-07-22 13:21 | Emergency (ER) | payer OTHER ==
[2022-07-22 13:25] VITALS: BP 111/71; PULSE 87; RESP 18; TEMP 98
[2022-07-22] MEDS ORDERED: MORPHINE SULFATE 4 MG/ML SYRINGE IVP STA (13:35)
[2022-07-22] MEDS ORDERED: SODIUM CHLORIDE 0.9% 500 ML 500 ML IV STA (13:36)
--- NOTE | 2022-07-22 14:00 | ED ---
Lower Extremity Injury HPI - General Chief Complaint: Extremity Injury, Lower Stated Complaint: R Knee Dislocation Time Seen by Provider: 07/22/22 13:30 Source: patient, EMS, RN notes reviewed, old records reviewed Mode of arrival: EMS Limitations: no limitations - History of Present Illness Initial Comments: This is a 27-year-old female to the emergency department for evaluation. Patient Dese for evaluation of right knee pain patient states her right knee went out and went back and she states this right knee is always cause her problems and she does admit to brace for this right knee. No somatic injury of the knee and currently knee feels well with decreased range of motion will states her range of motion is probably returned MD Complaint: knee injury -: hour(s) Injury: Knee: Right Type of Injury: blunt, inversion Place: home Severity: moderate Worsens With: weight bearing Associated Symptoms: snap/pop sensation, unable to bear weight - Related Data Home Medications Medication Instructions Recorded Confirmed Sertraline [Zoloft] 50 mg PO DAILY 01/09/21 07/22/22 Dextroamphetamine/Amphetamine 30 mg PO AC-BID 04/23/22 07/22/22 [Adderall] buPROPion XL [Wellbutrin XL] 300 mg PO DAILY 04/23/22 07/22/22 Allergies Allergy/AdvReac Type Severity Reaction Status Date / Time No Known Allergies Allergy Verified 07/22/22 15:00 Review of Systems ROS Statement: Those systems with pertinent positive or pertinent negative responses have been documented in the HPI. ROS Other: All systems not noted in ROS Statement are negative. Past Medical History Past Medical History: GERD/Reflux Additional Past Medical History / Comment(s): gastric bypass 2015, perforated ulcer in may, sepsis History of Any Multi-Drug Resistant Organisms: ESBL Date of last positivie culture/infection: 05/29/2018 MDRO Source:: ABDOMEN Past Surgical History: Bariatric Surgery, Hernia Repair, Orthopedic Surgery Additional Past Surgical History / Comment(s): feeding tube (removed in july 2018) , lt arm Past Anesthesia/Blood Transfusion Reactions: No Reported Reaction Past Psychological History: Anxiety, Depression, PTSD Smoking Status: Current every day smoker Past Alcohol Use History: None Reported, Abuse, Daily, Heavy Past Drug Use History: Marijuana, Prescription Drug Abuse - Past Family History Mother Family Medical History: No Reported History General Exam Limitations: no limitations General appearance: alert, in no apparent distress Head exam: Present: atraumatic, normocephalic, normal inspection Eye exam: Present: normal appearance, PERRL, EOMI. Absent: scleral icterus, conjunctival injection, periorbital swelling ENT exam: Present: normal exam, mucous membranes moist Neck exam: Present: normal inspection. Absent: tenderness, meningismus, lymphadenopathy Respiratory exam: Present: normal lung sounds bilaterally. Absent: respiratory distress, wheezes, rales, rhonchi, stridor Cardiovascular Exam: Present: regular rate, normal rhythm, normal heart sounds. Absent: systolic murmur, diastolic murmur, rubs, gallop, clicks GI/Abdominal exam: Present: soft, normal bowel sounds. Absent: distended, tenderness, guarding, rebound, rigid Extremities exam: Present: normal inspection, full ROM, normal capillary refill. Absent: tenderness, pedal edema, joint swelling, calf tenderness Back exam: Present: normal inspection Neurological exam: Present: alert, oriented X3, CN II-XII intact Psychiatric exam: Present: normal affect, normal mood Skin exam: Present: warm, dry, intact, normal color. Absent: rash Course Vital Signs 07/22/22 13:22 Temperature 98.0 F Pulse Rate 87 Respiratory 18 Rate Blood Pressure 111/71 O2 Sat by Pulse 96 Oximetry - Reevaluation(s) Reevaluation #1: 07/22/22 16:24 Medical record is reviewed Reevaluation #2: 07/22/22 16:24 Patient has a rapid improvement in symptoms here in the ER admit patient states that she came to the ER just to get a brace today and has had no issue with her knee Reevaluation #3: 07/22/22 16:24 Patient informed results and questions answered Reevaluation #4: 07/22/22 16:24 Was pt. sent in by a medical professional or institution? @ -no Did you speak to anyone other than the patient for history? @ -ems state gross knee deformity Did you review nursing and triage notes? @ -agree Were old charts reviewed? @ -peior ED visits Differential Diagnosis? @ -no EKG interpreted by me (3pts min.)? @ -no X-rays interpreted by me (1pt min.)? @ -yes CT interpreted by me (1pt min.)? @ -no U/S interpreted by me (1pt. min.)? @ -no What testing was considered but not performed? (CT, X-rays, U/S, labs)? Why? @ -no What meds were considered but not given? Why? @ -no Did you discuss the management of the patient with other professionals? @ -no Did you reconcile home meds? @ -no Was smoking cessation discussed for >3mins.? @ -no Was critical care preformed (if so, how long)? @ -no Were there social determinants of health that impacted care today? How? (Homelessness, low income, unemployed, alcoholism, drug addiction, transportation, low edu. Level, literacy, decrease access to med. care, [place] [facility], rehab)? @ -no Was there de-escalation of care discussed even if they declined? (Discuss DNR or withdrawal of care, Hospice)? @ -no What co-morbidities impacted this encounter? (DM, HTN, Smoking, COPD, CAD, Cancer, CVA, Hep., AIDS, mental health diagnosis, sleep apnea, morbid obesity)? @ -no Was patient admitted / discharged? @ -dc Undiagnosed new problem with uncertain prognosis? @ -no Drug Therapy requiring intensive monitoring for toxicity (Heparin, Nitro, Insulin, Cardizem)? @ -no Were any procedures done? @ -no Diagnosis/symptom? @ -knee pain Acute, or Chronic, or Acute on Chronic? @ -chronic Uncomplicated (without systemic symptoms) or Complicated (systemic symptoms)? @ -uncomplicated Side effects of treatment? @ -no Exacerbation, Progression, or Severe Exacerbation] @ -[no] Poses a threat to life or bodily function? @ -[no] Medical Decision Making - Medical Decision Making 27 female for evaluation of right knee pain patient requesting knee brace of right knee with no new injury she states here in the hospital we do state that the unable to provide patient with new knee brace without current injury. Patient did elope from the emergency department without discharge instructions. - Radiology Data Radiology results: report reviewed (X-ray knee is negative for acute disease), image reviewed Disposition Clinical Impression: Right knee pain Disposition: HOME SELF-CARE Condition: Good Instructions (If sedation given, give patient instructions): Knee Sprain (ED), Knee Pain (ED) Is patient prescribed a controlled substance at d/c from ED?: No Referrals: Aroldo June MD [Primary Care Provider] - 1-2 days Time of Disposition: 15:30
--- NOTE | 2022-07-22 14:17 | XR ---
EXAMINATION TYPE: XR knee complete RT DATE OF EXAM: 07/22/2022 CLINICAL HISTORY: Pain and swelling. Possible dislocation. TECHNIQUE: Three views of the right knee are obtained. COMPARISON: None. FINDINGS: There is no acute fracture/dislocation evident in the right knee. The tri-compartment marly nt spaces appear within normal limits. Overlying clothing or blanket material is present. IMPRESSION: There is no acute fracture or dislocation in the right knee.
== END 2022-07-22 15:00 | disposition home or self-care (01) ==
LOC: EC 13:21
DX: M25.561 Pain in right knee (principal); F41.9 Anxiety disorder, unspecified; F32.A Depression, unspecified; F12.90 Cannabis use, unspecified, uncomplicated; F17.200 Nicotine dependence, unspecified, uncomplicated; Z79.899 Other long term (current) drug therapy
CPT/HCPCS: 73562; 99284; 96374; 96361; J2270

== ENCOUNTER → 2022-10-29 | Outpatient (CLI) | payer OTHER ==
--- NOTE | 2022-10-29 15:24 | US ---
EXAMINATION TYPE: US OB >= 14 wk fetus DATE OF EXAM: 10/29/2022 COMPARISON: None CLINICAL INDICATION: Female, 27 years old with history of Z34.90 SUPERVISION OF NORMAL ; Con firm Dates TECHNIQUE: Transabdominal (TA) GESTATIONAL AGE / DATING Physician Established: (16 weeks/2 days) EDC: 04/13/2023 Dates by LMP: LMP unknown Dates by First Scan: No previous this is first scan Dates by Current Scan: (15 weeks/6 days) EDC: 04/16/2023 SURVEY IUP: Single PLACENTA: Anterior PREVIA: Marginal KRISTEN: 11.4 cm Normal CERVICAL LENGTH (transabdominal: norm > 3.0cm): 3.6 cm BIOMETRY PRESENTATION: Vertex BPD: 3.2 cm 16 weeks / 1 days HC: 11.7 cm 15 weeks / 6 days AC: 9.8 cm 15 weeks / 6 days FL: 1.8 cm 15 weeks / 3 days ESTIMATED WEIGHT IN GRAMS: 131 grams ESTIMATED WEIGHT IN LBS/OZ: 0 lbs. 5 oz. WEIGHT PERCENTAGE BASED ON ESTABLISHED DATES: 11% HC/AC: 1.20 Normal FL/AC: 19 Normal HEART RATE: 143 bpm RHYTHM: Normal [employer] notes:Single, viable IUP. There is marginal placental previa IMPRESSION: 1. Single live intrauterine with established gestational age of 16 weeks 2 days. Current ul trasound biometry is concordant (15 weeks 6 days) placing the gestation at the 11th percentile for we ight. 2. Complete survey recommended in 18-20 weeks. 3. Note an anterior, marginal placenta previa.
== END | disposition home or self-care (01) ==
LOC: RADUSWWP 10:14
PROVIDERS: ATTEND Obstetrics & Gynecology
DX: Z36.89 Encounter for other specified antenatal screening (principal); Z3A.16 16 weeks gestation of pregnancy
CPT/HCPCS: 76805

== ENCOUNTER → 2022-12-17 | Outpatient (CLI) | payer OTHER ==
--- NOTE | 2022-12-18 11:09 | US ---
EXAMINATION TYPE: US OB anatomy transabd DATE OF EXAM: 12/17/2022 COMPARISON: NONE CLINICAL INDICATION: Female, 27 years old with history of Z34.90 SUPERVISION NORMAL ; TECHNIQUE: Transabdominal (TA) EXAM MEASUREMENTS: GESTATIONAL AGE / DATING Physician Established: (23 weeks/2 days) EDC: 04/13/2023 Dates by LMP: (23 weeks/2 days) EDC: 04/13/2023 Dates by First Scan: (22 weeks/6 days) EDC: 04/16/2023 Dates by Current Scan for: (22 weeks/0 days) EDC: 04/22/2023 SURVEY IUP: Single PLACENTA: Anterior PREVIA: No previa KRISTEN: 10.9 cm Normal CERVICAL LENGTH (transabdominal: norm > 3.0cm): 3.2 cm BIOMETRY PRESENTATION: Vertex LIE: Longitudinal BPD: 5.4 cm 22 weeks / 2 days HC: 20.0 cm 22 weeks / 1 days AC: 17.5 cm 22 weeks / 3 days FL: 3.8 cm 22 weeks / 2 days ESTIMATED WEIGHT IN GRAMS: 495 grams ESTIMATED WEIGHT IN LBS/OZ: 1 lbs. 1 oz. WEIGHT PERCENTAGE BASED ON ESTABLISHED DATE: 9 % HC/AC: 1.14 Normal FL/AC: 21.90 Normal HEART RATE: 152 bpm RHYTHM: Normal ANATOMY SEEN (within normal limits): * Lateral Vent (< 1 cm) 0.7 cm * Cisterna Magna (< 1.1 cm) 0.8 cm * Nuchal Fold (< 0.6 cm) 0.4 cm * Cerebellum (varies with age) 2.3 cm Choroid Plexus (bilateral) Midline Falx Cavus Septi Pellucidi Four Chamber Heart Outflow tracts: LVOT/RVOT Stomach Situs Nose / Lips Diaphragm Kidneys (bilateral) Bladder Cord Insert Three Vessel Cord Longitudinal Spine Transverse Spine Arms (bilateral) Legs (bilateral) IMPRESSION: 1. Single intrauterine gestation estimated at 22 weeks 0 days gestation based on current ultrasound m easurements. Cardiac activity measures 152 bpm.
== END | disposition home or self-care (01) ==
LOC: RADUSWWP 10:34
PROVIDERS: ATTEND Obstetrics & Gynecology
DX: Z34.92 Encounter for supervision of normal pregnancy, unspecified, second trimester (principal); Z3A.22 22 weeks gestation of pregnancy
CPT/HCPCS: 76811

== ENCOUNTER → 2023-03-19 | Outpatient (CLI) | payer OTHER ==
--- NOTE | 2023-03-19 14:28 | US ---
EXAMINATION TYPE: US OB anatomy transabd DATE OF EXAM: 03/19/2023 COMPARISON: CLINICAL INDICATION: Female, 27 years old with history of O24.414 GESTATIONAL DIABETES IN , INSULIN; Anatomy per Dr Pierce orders TECHNIQUE: Transabdominal (TA) EXAM MEASUREMENTS: GESTATIONAL AGE / DATING Physician Established: (36 weeks/3 days) EDC: 04/13/2023 Dates by Current Scan for: (33 weeks/2 days) EDC: 05/05/2023 SURVEY IUP: Single PLACENTA: Anterior PREVIA: No previa KRISTEN: 9.6 cm Normal CERVICAL LENGTH (transabdominal: norm > 3.0cm): 3.0 cm BIOMETRY PRESENTATION: Vertex BPD: 8.5 cm 34 weeks / 2 days HC: 30.6 cm 34 weeks / 1 days AC: 28.6 cm 32 weeks / 4 days FL: 6.5 cm 33 weeks / 4 days ESTIMATED WEIGHT IN GRAMS: 2143 grams ESTIMATED WEIGHT IN LBS/OZ: 4 lbs. 12 oz. WEIGHT PERCENTAGE BASED ON ESTABLISHED DATE: <3 % HC/AC: 1.1 Normal FL/AC: 22.8 Normal HEART RATE: 157 bpm RHYTHM: Normal ANATOMY SEEN (within normal limits): * Lateral Vent (< 1 cm) 0.7 cm Four Chamber Heart Outflow tracts: RVOT Stomach Situs Nose / Lips Diaphragm Kidneys (bilateral) Bladder Three Vessel Cord Longitudinal Spine Transverse Spine Arms (bilateral) Legs (bilateral) Feet Hands ANATOMY NOT SEEN due to advanced gestational age: * Cisterna Magna (< 1.1 cm) * Nuchal Fold (< 0.6 cm) * Cerebellum (varies with age) Choroid Plexus (bilateral) Midline Falx Cavus Septi Pellucidi LVOT Left Tib/Fib Right Rad/Ulnar Left Humerus Cord Insertion Live IUP measuring smaller in size at 33 weeks 2 days IMPRESSION: Single viable intrauterine with discordant dates as noted above.
== END | disposition home or self-care (01) ==
LOC: RADUSWWP 12:49
PROVIDERS: ATTEND Obstetrics & Gynecology
DX: O24.414 Gestational diabetes mellitus in pregnancy, insulin controlled (principal); Z3A.34 34 weeks gestation of pregnancy
CPT/HCPCS: 76811